=== PATIENT | male | born 1945 | race Caucasian/White ===

== ENCOUNTER 2017-08-12 16:09 | Inpatient (IN) | payer OTHER ==
--- NOTE | 2017-08-12 16:28 | CPEKG ---
Heart Rate: 91 RR Interval: 659 P-R Interval: 144 QRSD Interval: 98 QT Interval: 340 QTC Interval: 419 P Pelkie: 55 QRS Pelkie: 59 T Wave Pelkie: 65 EKG Severity - ABNORMAL ECG - EKG Impression: SINUS RHYTHM EKG Impression: LEFT ATRIAL ABNORMALITY EKG Impression: BORDERLINE INFERIOR Q WAVES Electronically Signed By: Sowmya New 12-Aug-2017 22:55:02
[2017-08-12] MEDS ORDERED: IPRATROPIUM/ALBUTEROL 3 ML DEYVIAL IH ONE (16:31)
[2017-08-12] MEDS ORDERED: methylPREDNISolone SOD SUCC 125 MG/2 ML VIAL IVP ONE (16:31)
--- NOTE | 2017-08-12 16:36 | EDPHY ---
H & P Time Seen by Provider: 08/12/17 16:23 HPI/ROS: CHIEF COMPLAINT: Shortness of breath HISTORY OF PRESENT ILLNESS: Patient is a 71-year-old male with a history of COPD who presents emergency department increasing shortness of breath. Patient is followed by Dr. Mariee from pulmonology. Dr. Mariee is concerned the patient could be developing interstitial lung disease. Over the past month he has been treated with 3 different courses of antibiotics and 2 courses of steroids. He has continued to have increased oxygen requirement. He is now using [address] Mariee saw him in the office today. He felt that his respiratory status was worsening and sent him to the emergency department for admission. Patient states that he has been using his inhalers with no relief. He continues to have a nonproductive cough. He denies any chest pain. No nausea or vomiting. The patient did have a fever 2 days ago to 104. REVIEW OF SYSTEMS: My complete review of systems is negative except as mentioned in the HPI. Past Medical/Surgical History: Includes COPD, possible interstitial lung disease, high cholesterol, hypertension Past surgical history: Bilateral knee replacement Social history: The patient does not smoke. Patient is seen by Dr. Mariee and the [facility]. (of note, the triage note states the patient was seen at the [facility] 2 days ago. The patient has not been seen at the [facility] for some time.) Smoking Status: Former smoker Physical Exam: 37.6, 140/70, 95, 24, 92% on room air GENERAL: Mild respiratory distress, alert. HEENT: Eyes normal to inspection, normal pharynx, no signs of dehydration. NECK: [No thyromegaly, no lymphadenopathy, supple. RESPIRATORY: Coarse breath sounds bilaterally, no rales, rhonchi. Accessory muscle use. Increased work of breathing. CVS: Regular rate and rhythm, no rubs, murmurs, or gallops. ABDOMEN: Soft, nontender, nondistended, no organomegaly. BACK: Normal to inspection, no CVA tenderness. SKIN: Normal color, no rash, warm, dry. No pallor. EXTREMITIES: No pedal edema, no calf tenderness, no Homans sign or cords, no joint swelling. NEURO/PSYCH: Alert and oriented x3, normal mood and affect, normal motor sensory exam. No obvious cranial nerve deficit. Constitutional: Initial Vital Signs Temperature (C) 37.6 C 04/06/18 16:10 Heart Rate 95 08/12/17 16:10 Respiratory Rate 24 H 08/12/17 16:10 Blood Pressure 140/70 H 08/12/17 16:10 O2 Sat (%) 92 08/12/17 16:10 O2 Delivery Mode Nasal Cannula O2 (L/minute) 15 Allergies/Adverse Reactions: No Known Allergies Allergy (Unverified 03/18/11 13:47) Home Medications: Medication Instructions Recorded Atorvastatin Calcium [Lipitor 20 20 mg PO DAILY 03/21/13 mg (RX)] Calcium Carbonate/Vitamin D3 1 tab PO DAILY 03/21/13 [Calcium 500 + D Tablet] Doxylamine Succinate [Sleep Aid] 25 mg PO HS 03/21/13 Multivitamins [Tab-A-Oscar] 1 each PO DAILY 03/21/13 amLODIPine BESYLATE [Norvasc] 10 mg PO DAILY 03/21/13 Albuterol 5 mg/ml INH 06/26/15 Symbacort 06/26/15 Trelegy Ellipta 100-62.5-25 08/12/17 Medical Decision Making - Diagnostics Imaging Results: Imaging Impressions Chest X-Ray 08/12/17 16:31 Impression: 1. Bilateral consolidation/pneumonia left side greater than right. 2. Relative sparing of consolidation involving the upper lobes partially related to underlying blebs, emphysema, and COPD. 3. Blebs are suspected outlined from the dense consolidation left mid lung. There may be some fluid layering in the blebs as well. ED Course/Re-evaluation: In the emergency department I met the patient on arrival. I took report from the patient and his . An IV was placed. Laboratory studies, EKG, chest x- ray were ordered. The patient was given a DuoNeb and Solu-Medrol 125 mg IV. I discussed case with Dr. Mariee. EKG shows normal sinus rhythm, normal rate, normal axis, left bundle branch block. There are no ST or T-wave abnormalities. Patient's white count was minimally elevated at 10. His lactic acid was normal. Chemistry panel is unremarkable. BNP 171. Troponin was negative. Patient's ABG showed a pH of 7.44/32/109 on 15 L of oxygen. Chest x-ray: Please refer the dictated report. This x-ray is abnormal and worsen his previous images studies. Because of this patient was given Levaquin 750 mg IV. I discussed the findings with the patient. I answered all his questions. I discussed case with who will admit the patient for further care and evaluation. Differential Diagnosis: My differential includes but is not limited to COPD exacerbation, interstitial lung disease, pneumonia, bronchitis, influenza, respiratory failure Critical Care Time: The patient required 35 min of critical care time. This was exclusive of any unbundled procedure. This was due the patient's increased oxygen demand, frequent rechecks, time spent at the bedside, consultation with pulmonology and Internal Medicine. - Data Points Laboratory Results: Laboratory Results 08/12/17 16:26 08/12/17 16:26 08/12/17 08/12/17 08/12/17 16:54 16:26 16:26 WBC RBC Hgb Hct MCV MCH MCHC RDW Plt Count MPV Neut % (Auto) Lymph % (Auto) Slope % (Auto) Eos % (Auto) Baso % (Auto) Nucleat RBC Rel Count Absolute Neuts (auto) Absolute Lymphs (auto) Absolute Monos (auto) Absolute Eos (auto) Absolute Basos (auto) Absolute Nucleated RBC Immature Gran % Immature Gran # Puncture Site LEFT RADIAL Patient Temperature 37.0 DEGREES DEGREES pCO2 32 mmHg L mmHg (34-38) pO2 109 mmHg H mmHg (65-75) Total CO2 23 mEq/L mEq/L (23-27) ABG pH 7.44 (7.35-7.45) ABG HCO3 22 mEq/L mEq/L (22-26) ABG O2 Saturation 98 % H % (92-95) ABG Base Excess -1.3 mEq/L mEq/L (-2.5-2.5) VBG Lactic Acid 0.9 mmol/L mmol/L (0.7-2.1) Total O2 Concentration 15.0 LITERS LITERS Sodium 140 mEq/L mEq/L (135-145) Potassium 4.3 mEq/L mEq/L (3.5-5.2) Chloride 105 mEq/L mEq/L (97-110) Carbon Dioxide 26 mEq/l mEq/l (22-31) Anion Gap 9 mEq/L mEq/L (8-16) BUN 22 mg/dL mg/dL (7-23) Creatinine 0.9 mg/dL mg/dL (0.7-1.3) Estimated GFR > 60 Glucose 95 mg/dL mg/dL (70-100) Calcium 9.6 mg/dL mg/dL (8.5-10.4) Troponin I < 0.012 ng/mL ng/mL (0.000-0.034) NT-Pro-B Natriuret Pep 171 pg/mL H pg/mL (0-125) 08/12/17 16:26 WBC 10.91 10^3/uL H 10^3/uL (3.80-9.50) RBC 4.62 10^6/uL 10^6/uL (4.40-6.38) Hgb 13.9 g/dL g/dL (13.7-17.5) Hct 42.3 % % (40.0-51.0) MCV 91.6 fL fL (81.5-99.8) MCH 30.1 pg pg (27.9-34.1) MCHC 32.9 g/dL g/dL (32.4-36.7) RDW 13.5 % % (11.5-15.2) Plt Count 240 10^3/uL 10^3/uL (150-400) MPV 9.5 fL fL (8.7-11.7) Neut % (Auto) 77.0 % H % (39.3-74.2) Lymph % (Auto) 9.8 % L % (15.0-45.0) Slope % (Auto) 9.8 % % (4.5-13.0) Eos % (Auto) 2.5 % % (0.6-7.6) Baso % (Auto) 0.6 % % (0.3-1.7) Nucleat RBC Rel Count 0.0 % % (0.0-0.2) Absolute Neuts (auto) 8.40 10^3/uL H 10^3/uL (1.70-6.50) Absolute Lymphs (auto) 1.07 10^3/uL 10^3/uL (1.00-3.00) Absolute Monos (auto) 1.07 10^3/uL H 10^3/uL (0.30-0.80) Absolute Eos (auto) 0.27 10^3/uL 10^3/uL (0.03-0.40) Absolute Basos (auto) 0.07 10^3/uL 10^3/uL (0.02-0.10) Absolute Nucleated RBC 0.00 10^3/uL 10^3/uL (0-0.01) Immature Gran % 0.3 % % (0.0-1.1) Immature Gran # 0.03 10^3/uL 10^3/uL (0.00-0.10) Puncture Site Patient Temperature pCO2 pO2 Total CO2 ABG pH ABG HCO3 ABG O2 Saturation ABG Base Excess VBG Lactic Acid Total O2 Concentration Sodium Potassium Chloride Carbon Dioxide Anion Gap BUN Creatinine Estimated GFR Glucose Calcium Troponin I NT-Pro-B Natriuret Pep Medications Given: Levofloxacin/Dextrose (Levaquin 750 Mg (Premix)) 150 mls @ 100 mls/hr IV ONCE ONE PRN Reason: Protocol Stop: 08/12/17 18:28 Last Admin: 08/12/17 17:16 Dose: 150 mls Discontinued Medications Albuterol/Ipratropium (Duoneb) 3 ml IH EDNOW ONE Stop: 08/12/17 16:32 Last Admin: 08/12/17 17:02 Dose: 3 ml Methylprednisolone Sodium Succinate (Solu-Medrol) 125 mg IVP EDNOW ONE Stop: 08/12/17 16:32 Last Admin: 08/12/17 17:02 Dose: 125 mg Departure - Departure Disposition: [facility] Inpatient Acute Clinical Impression: Shortness of breath, COPD exacerbation Condition: Fair Referrals: Joel Mariee MD [Primary Care Provider] - As per Instructions
[2017-08-12 16:37] LABS: PLATELET COUNT 240 10^3/uL (150-400)
[2017-08-12] MEDS ORDERED: ONDANSETRON DISINTEGRATING 4 MG TAB PO PRN (17:16)
[2017-08-12] MEDS ORDERED: ONDANSETRON 4 MG/2 ML VIAL IVP PRN (17:16)
[2017-08-12] MEDS ORDERED: ALBUTEROL 3 ML DEYVIAL IH PRN (17:16)
[2017-08-12] MEDS ORDERED: ACETAMINOPHEN 325 MG TAB PO PRN (17:16)
--- NOTE | 2017-08-12 19:49 | GHP ---
[f rep st] HISTORY AND PHYSICAL DATE OF ADMISSION: 08/12/2017 CHIEF COMPLAINT: Shortness of breath and cough. HISTORY OF PRESENT ILLNESS: A 71-year-old male with a history of extensive COPD, which is bullous on imaging, who presents with progressing shortness of breath and cough. Patient has been followed fatemeh y closely by his outpatient director career services, Dr. Mariee. They have completed several courses of antibi otics preceding this, and patient continues to have progressive symptoms. Upon arrival to the ICU, the patient is describing persistent shortness of breath and cough, describi ng some fatigue. Denies any chest pain. Denies palpitations. Denies headache. Denies abdominal di scomfort. He has been tolerating p.o. without complication. Denies changes in his bowel habits, dys uria, hematuria, or lower extremity edema. PAST MEDICAL HISTORY: 1. COPD. 2. Hyperlipidemia. 3. Hypertension. 4. Bilateral knee replacements. 5. Gout. SOCIAL HISTORY: Previous tobacco user. Drinks a beer in the evenings. No illicit drugs or marijuan a. FAMILY HISTORY: Positive for hypertension. REVIEW OF SYSTEMS: A 10-point review of systems is negative with the exception of that reported in t he HPI. PHYSICAL EXAMINATION: VITAL SIGNS: Blood pressure is 148/65, heart rate 101, respiratory rate 20, t emperature 39.2, saturating 93% on a 15 L OxyMask. GENERAL: This is a pleasant-appearing middle-age d male lying flat in bed. HEENT: Notable for moist mucous membranes. Cheeks are erythematous. CAR DIAC: Patient is tachycardic, but regular. PULMONARY: Diffuse crackles bilaterally. GASTROINTESTI NAL: Distended abdomen. Positive bowel sounds. Nontender in all 4 quadrants. MUSCULOSKELETAL: Ne gative for any lower extremity edema. SKIN: Negative for any rashes. NEUROLOGIC: Patient appears alert and oriented x3. PSYCHIATRIC: He is pleasant and cooperative on interview and examination. DATA: White count 10.9, hematocrit 42.3, platelets of 240, creatinine 0.9. Troponin less than 0.012 . Chest x-ray, which I personally reviewed and interpreted, shows bullous emphysema with diffuse cruz ateral fine infiltrates. ASSESSMENT AND PLAN: This is a 71-year-old male with known chronic obstructive pulmonary disease, pr esenting with progressing shortness of breath and cough. 1. Cvcox-nn-wzqqmpo hypoxic respiratory failure. The patient has completed multiple courses of anti biotics. There is some concern the patient now has progressive interstitial lung disease. The patie nt will be admitted, placed on intravenous levofloxacin and high-dose intravenous steroids, per Dr. Sara dc, 125 mg q.6. We will follow his clinical progress. Pulmonary will be seeing the patient in [facility] and can assist with recommendations related to additional diagnostics or therapeutics. 2. Sepsis. Patient is presenting with leukocytosis, tachycardia, and fever. Presumed source would be pulmonary. I have ordered a respiratory panel, polymerase chain reaction. Blood cultures have be en obtained. Patient will receive empiric intravenous levofloxacin. We will continue to follow hilario clemons. 3. Hypertension. The patient's blood pressures will tolerate his home medications, will continue th shaneka. 4. Hyperlipidemia. We will continue his home medications without change. 5. Prophylaxis with Lovenox. 6. Diet: Regular. 7. Disposition: I expect greater than 2 midnights as the patient's pulmonary status is tenuous. He will need additional diagnostics and monitoring before a safe disposition. I have discussed the case with the director career services, Dr. Mariee. Patient will be triaged to the step-do wn unit secondary to his oxygen requirements for ongoing care. /[id number]/MODL
--- NOTE | 2017-08-12 20:14 | PDMN ---
Medical Necessity Medical necessity: C/M review: Patient meets INPT criteria under [facility] Pulmonary disease GRG (Interstitial lung disease), Respiratory failure GRG: Acute on chronic hypoxic respiratory failure, progressing shortness of breath and cough, concern the patient now has progressive interstitial lung disease, sepsis, 93% sat on 15L/min. oxymask, WBC 10.9, bulbous emphysema with diffuse bilateral fine infiltrates on CXR, respiratory rate 24, 39.2 T max requiring planned Pulmonary consult, ongoing IV Levaquin QD, high dose IV Solumdrol 125 mg Q 6 hrs. pulse oximetry, supplemental O2 in SDU, comorbid history of COPD, hyperlipidemia, hypertension, gout, previous tobacco user. MD anticipates > 2 MN LOS for ongoing med nec for eval and TX of above. Patient is Medicare Advantage which follows guidelines [facility] puts forth.
[2017-08-12] MEDS: IPRATROPIUM/ALBUTEROL 3 ML DEYVIAL IH SCH (20:43)
[2017-08-13] MEDS: methylPREDNISolone SOD SUCC 125 MG/2 ML VIAL IVP SCH ×5 (00:20→23:54)
[2017-08-13] MEDS: ATORVASTATIN CALCIUM 20 MG TAB PO SCH ×2 (00:20→20:46)
[2017-08-13] MEDS: GABAPENTIN 300 MG CAP PO SCH ×5 (00:20→23:54)
[2017-08-13] MEDS: IPRATROPIUM/ALBUTEROL 3 ML DEYVIAL IH SCH ×4 (05:57→20:31)
[2017-08-13 06:23] LABS: PLATELET COUNT 232 10^3/uL (150-400)
[2017-08-13] MEDS: MULTIVITAMINS 1 EACH TAB PO SCH (09:55)
[2017-08-13] MEDS: ENOXAPARIN 40 MG/0.4 ML SYR SC SCH (09:55)
[2017-08-13] MEDS: CALCIUM CARB W/VIT D 500 MG TAB PO SCH (09:55)
--- NOTE | 2017-08-13 12:38 | ASMTCMCOM ---
CM Note CM Note Notes: Pt admitted for shortness of breath and cough. Pt sees Dr. Mariee as an outpatient for ongoing issues with COPD and interstitial lung disease. Pt was seen in Dr. Mariee's office yesterday and was sent to the hospital as a direct admit. Pt utilizes high flow oxygen (15L) with activity at his baseline. Per Dr. Robertson, the pt is normally followed by the [facility]. The pt is currently a full code; Dr. Robertson to address code status. Per ICU rounds, a palliative care consult may be appropriate early next week. Dr. Robertson to discuss with Dr. Mariee. The pt lives with his . Discharge needs remain unclear at this time. CM will continue to follow. Current Discharge Plan: To be determined Date Signed: 08/13/2017 12:37 PM Electronically Signed By:Chandni Helm RN
--- NOTE | 2017-08-13 12:46 | GCON ---
[f rep st] CONSULTATION PULMONARY CONSULTATION REASON FOR CONSULTATION: Increased shortness of breath, hypoxemia, pulmonary infiltrates, possible p neumonia. HISTORY: The patient is a very pleasant 71-year-old with a history of severe underlying lung disease . He has known COPD/emphysema secondary to previous smoking. He began smoking in his teens and quit smoking when he was approximately 38 years old. He smoked up to a 2 packs a day for an estimated pa ck year history of approximately 40. He also has a history of interstitial lung disease. He has bee n followed intermittently by Dr. Mariee in the past and was seen again this year. His followup over the last several years has been at the [facility] in [place]. His last CT scan and pulmonary function studies previously were done there. CT scan there in late May showed development of a consolidat shruti process in the anterior left upper lobe and lingula, which was felt possibly to be atelectasis or possibly infectious pneumonitis. Emphysema was again documented. There were bilateral subpleural r eticular nodular interstitial infiltrates at the bases with some mild honeycombing. This was felt to be stable compared to a CT scan done in October 2016. Pulmonary function studies at that time showed a forced vital capacity of 3.97 L, 88% of predicted, with an FEV1 of 2.42 L, 74% of predicted. The ra jaden was 61%. There was a response to bronchodilator by flow rates. Total lung capacity was 98% of p redicted with a thoracic gas volume of 107% of predicted and a residual volume of 124% of predicted. DLCO was significantly reduced at 26% of predicted. His disease is associated with severe hypoxemia. He has been on high-flow oxygen for quite some time , using up to 15 L with 2 portable set-ups with exertional activities. This goes back at least 6 mon ths, and he was on high-flow oxygen even prior to that time. Approximately 3 months ago, he had incr eased dry cough. This was about the time that he was seen in late May at the [facility]. Since then, hi s cough has persisted. He rarely brings up any sputum. Associated with this has been increasing lily rtness of breath and dyspnea on exertion. He has had difficulty coming into the office for appointme nts secondary to extreme dyspnea. Over the last couple days, he has had fevers to as high as 104. H e was seen in the office by Dr. Mariee yesterday. He was profoundly dyspneic and hypoxemic. Saturat ions on double O2 set-up were 90%. He was sent to the hospital for admission with possible pneumonia . Chest x-ray on admission has shown pulmonary infiltrates bilaterally, left significantly greater than right. Pneumonia was felt to be possible. He was started on levofloxacin, placed on DuoNeb, and st arted on Solu-Medrol at 125 mg IV q.6 hours. By his report, he has been on various courses of steroids and antibiotics over the last several month s, since late May. He does not feel that these have resulted in any significant benefit in his c ough, hypoxemia, or dyspnea. He was able to bring up some yellow sputum post admission. He remains on high-flow oxygen, currently on Oxymizer at 10 L; saturations are 95%. There is no history of underlying heart disease. PAST MEDICAL HISTORY: Remarkable for COPD/emphysema and interstitial lung disease as noted above, al adi with an increasingly consolidated process in the left lung since late May. Other medical pro blems include hypertension, hyperlipidemia, bilateral knee replacements, and gout. SOCIAL HISTORY: The patient is . He has not smoked for many years. He does not drink alcoho l significantly; beers in the evenings. 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 There are no recent changes in his home environment and no exposures. O ther individuals have not been ill. FAMILY HISTORY: Noncontributory. History of hypertension. REVIEW OF SYSTEMS: A 10-point review of systems is negative except as mentioned above. PHYSICAL EXAMINATION: GENERAL: A very pleasant, cushingoid-appearing gentleman, who is in no acute distress. Oxymizer nasal cannula is in place. VITAL SIGNS: Blood pressure is 115/94, heart rate 92 with sinus rhythm on the monitor, respiratory rate approximately 20. He is afebrile, with a T-max o f 39.2 after admission. HEENT: Unremarkable for lymphadenopathy or thyromegaly. No obvious jugular venous distention, but the neck is large, and this is difficult to estimate. CHEST: Decreased lynne th sounds bilaterally with some central and expiratory congestion and bibasilar rales. Excursions ar e overall diminished. No pleural rub. No urszula rhonchi. He was able to bring up a small amount of yellow sputum. HEART: Tones are distant. The rhythm is regular. There appears to be a soft systol ic murmur. Gallops cannot be appreciated. P2 appears to be increased. ABDOMEN: Overweight, soft, nontender. Bowel sounds are present. EXTREMITIES: Remarkable for trace plus edema. NEUROLOGIC: W ithin normal limits. DATABASE: CHEST X-RAY: As outlined above. LABORATORY: White blood cell count is 9800, hematocrit 39 (down from approximately 52 on admission), and platelets are normal. There is a shift to the left. Arterial blood gas on admission showed a pH of 7.44, pCO2 34, and pO2 109 on 15 L of oxygen. Blood lactate was 0.9. Basic metabolic panel is w ithin normal limits with the exception of an elevated glucose this morning at 165. Liver function st udies are normal. Troponins are negative. BNP is 171. ASSESSMENT: 1. Pneumonia: Patient presents with fevers and increasing infiltrates on the left, consistent with a community-acquired pneumonia. He has been started on Levaquin and does have significant underlying lung disease, both COPD/emphysema, with a reversible component and interstitial lung disease. He is on bronchodilator therapy and steroids, as well. A sputum culture will be obtained. Levaquin will be continued. A respiratory panel shows no organisms detected, ruling out many viruses, mycoplasma, chlamydia, etc. Urine for Legionella and pneumococcus will be obtained. A sputum culture has been o rdered. 2. Chronic obstructive pulmonary disease/emphysema: He has very significant disease with known bull ous emphysema at the apices. His current pneumonia has resulted in an exacerbation. 3. Interstitial lung disease: The patient has known interstitial lung disease. This is likely cont ributing significantly to his hypoxemia and pulmonary infiltrates. He may have progressive focal pul monary infiltrates on the left in addition to pneumonia, as some consolidative changes were present w hen he was not acutely ill by CT scan in late May at the [facility] by report. PLAN AND RECOMMENDATIONS: The patient will be kept in the intensive care unit. A CT scan (noncontra st) of the chest will be ordered. A procalcitonin will be obtained. Urine antigens for pneumococcus and Legionella will be requested. Sputum culture has been requested. Levaquin, bronchodilator ther apy, and high-dose steroids will be continued for now. He may need insulin coverage if glucoses cont inue to rise. Enoxaparin will be continued for DVT prophylaxis Pepcid will be added for GI prophylax is in light of his high-dose steroid therapy. Inhaled therapies, including his outpatient Trelegy, w ill be continued. DuoNeb will be given scheduled 4 times a day with albuterol in addition by nebuliz er if needed. His routine outpatient medications will be continued. A cardiac echo will be obtained as well. This can be done on Tuesday. Further plans and recommendations will be made based on his progress over the next 12-24 hours. /[id number]/MODL
--- NOTE | 2017-08-13 16:41 | HOSPPROG ---
Hospitalist Progress Note Assessment/Plan: #Acute on chronic hypoxemic resp failure -severe emphysema, COPD, ILD. CT chest with PNA #CAP: LQ, steroids -Legionella, Strep pneumo Ag pending #Fever: CAP. Negative resp panel. Blood cx pending #COPD/emphysema: Nebs, high-dose steroids; monitor sugars #ILD: progressive on CT today #HTN: norvasc #HLD: statin #Gout: no active flar3 #DVT ppx: Lovenox #Disp: cont ICU admission for high-flow oxygen, IV steroids, abx Subjective: breathing less labored today Objective: Vital Signs Temp Pulse Resp BP Pulse Ox 36.8 C 103 H 14 138/49 H 92 08/13/17 16:00 08/13/17 16:00 08/13/17 16:00 08/13/17 16:00 08/13/17 16:00 Laboratory Results 08/13/17 06:15 08/13/17 06:15 08/12/17 08/13/17 08/14/17 05:59 05:59 05:59 Intake Total 700 150 Output Total 400 Balance 300 150 - Physical Exam Constitutional: obese Eyes: PERRL Ears, Nose, Mouth, Throat: moist mucous membranes Cardiovascular: regular rate and rhythym Respiratory: reduced air movement Gastrointestinal: normoactive bowel sounds Genitourinary: no bladder fullness Skin: warm Musculoskeletal: full muscle strength Neurologic: AAOx3, CN II-XII Intact ICD10 Worksheet Patient Problems: Problems Problem Status Onset Osteoarthritis of knee Acute Shortness of breath Acute COPD exacerbation Acute
[2017-08-13] MEDS ORDERED: diphenhydrAMINE 25 MG CAP PO ONE (23:51)
[2017-08-13] MEDS: HYDROCODONE/APAP 5/325 TAB PO PRN (23:56)
[2017-08-14] MEDS: IPRATROPIUM/ALBUTEROL 3 ML DEYVIAL IH SCH (05:30)
[2017-08-14] MEDS: GABAPENTIN 300 MG CAP PO SCH ×4 (05:55→21:32)
[2017-08-14] MEDS: methylPREDNISolone SOD SUCC 125 MG/2 ML VIAL IVP SCH ×4 (05:55→22:32)
[2017-08-14 06:10] LABS: PLATELET COUNT 235 10^3/uL (150-400)
[2017-08-14] MEDS: CALCIUM CARB W/VIT D 500 MG TAB PO SCH (09:03)
[2017-08-14] MEDS: ENOXAPARIN 40 MG/0.4 ML SYR SC SCH (09:04)
[2017-08-14] MEDS: MULTIVITAMINS 1 EACH TAB PO SCH (09:04)
--- NOTE | 2017-08-14 12:00 | PDINTPN ---
Adoption Specialist Progress Note Assessment/Plan: Assessment: Severe bolus emphysema. Quite impressive on CT scan. COPD exacerbation, with cough and purulent sputum. Febrile prior to admission. Respiratory panel negative. Cultures negative to date. Normal procalcitonin argues against significant bacterial infection. On empiric Levaquin. Also getting bronchodilators and high-dose steroids. Will decrease the latter. Possible pneumonia. Chest x-ray shows infiltrates and densities in the left lung, seen on CT scan as well. However, some or all of these densities may be chronic and associated with atelectasis/scarring as they were described in his CT scan at the [facility] in May. Will repeat x-ray, two view tomorrow. Interstitial lung disease. Present in the little remaining lung he has left at the bases, with some honeycombing. Worse compared with his last CT scan at [facility] in 2012. Contributing to his hypoxemia. Hypoxemia. Requires high-flow oxygen with exertional activities, 15 L over the last several months. This appears to be stable at this time. DLCO previously was significantly reduced at about 25% of predicted. Obviously has a large A-a gradient. Relatively normal spirometry, with only mild obstructive disease present. This is somewhat of a surprising finding and probably represents the opposition of obstructive disease/hyperinflation from COPD emphysema and restrictive disease from ILD. Also, clinically, despite his high oxygen requirements, and he seems to do quite well. DVT prophylaxis: Enoxaparin. Plan: Will wean oxygen for a saturation of approximately 90% at rest. Check resting blood gas on this lower oxygen. Continue empiric antibiotics for now. Decrease steroids. Continue bronchodilator treatments. Can transfer to PCU today. Increase activity, ambulate. PT and OT evaluations requested. Repeat x -ray tomorrow: Two-view. Cardiac echo requested for tomorrow as well to evaluate right and left heart function in light of his severe lung disease. 40 min of critical care time spent directly with the patient. Discussed with the patient, nursing, respiratory, and the ICU multi disciplinary team. Subjective: Feels better. Cough is decreased but still intermittent. Not bringing up any more mucus. Denies chest pain. O2 at rest being weaned. Objective: Vital Signs Temp Pulse Resp BP Pulse Ox 36.7 C 89 19 116/54 L 99 08/14/17 10:25 08/14/17 10:25 08/14/17 10:08/14/17 10:25 08/14/17 10:25 Laboratory Results 08/14/17 05:55 08/14/17 05:55 08/13/17 08/14/17 08/15/17 05:59 05:59 05:59 Intake Total 700 650 Output Total 400 Balance 300 650 Laboratory Tests 08/13/17 08/14/17 19:40 05:55 Calcium 9.5 Magnesium 2.5 H Procalcitonin 0.04 Physical Exam - Physical Exam General Appearance: alert, no apparent distress, other (Up in chair) EENT: PERRL/EOMI, other (Nasal cannula in place, oxygen currently at 8 L) Neck: normal inspection (No obvious jugular venous distension, but large neck.) Respiratory: decreased breath sounds (Bilaterally), rales (Fine rales present at both bases), wheezing (Minimal, not tight.), prolonged expiration (Mild), other (Cough is dry, with minimal bronchial congestion.), No rhonchi Cardiac/Chest: regular rate, rhythm (Distant heart tones, soft systolic murmur, no obvious gallop. P2 mildly increased) Abdomen: normal bowel sounds, non-tender, soft (Overweight) Skin: normal color, warm/dry Extremities: pedal edema (Trace +) Neuro/Psych: no motor/sensory deficits, No cognition abnormalities ICD10 Worksheet Patient Problems: Problems Problem Status Onset Osteoarthritis of knee Acute Shortness of breath Acute COPD exacerbation Acute
--- NOTE | 2017-08-14 13:04 | HOSPPROG ---
Hospitalist Progress Note Assessment/Plan: #Acute on chronic hypoxemic resp failure -severe emphysema, COPD, ILD. CT chest with PNA -echo pending #CAP: LQ, steroids -Legionella, Strep pneumo Ag pending #Fever: CAP. Negative resp panel. Blood cx pending #Leukocytosis: steroids #COPD exacerbation: Nebs, high-dose steroids; monitor sugars #ILD: progressive on CT today #HTN: norvasc #HLD: statin #Gout: no active flar3 #DVT ppx: Lovenox #Disp: cont ICU admission for high-flow oxygen, IV steroids, abx Subjective: mildly winded with walking to bathroom Objective: Vital Signs Temp Pulse Resp BP Pulse Ox 36.6 C 94 18 110/80 89 L 08/14/17 12:00 08/14/17 12:00 08/14/17 12:00 08/14/17 12:00 08/14/17 12:00 Laboratory Results 08/14/17 05:55 08/14/17 05:55 08/13/17 08/14/17 08/15/17 05:59 05:59 05:59 Intake Total 700 650 Output Total 400 Balance 300 650 - Physical Exam Eyes: PERRL Ears, Nose, Mouth, Throat: moist mucous membranes Cardiovascular: regular rate and rhythym Respiratory: reduced air movement, other (fine crackles at bases. Mild wheezing. No rhonchi) Genitourinary: no bladder fullness Skin: warm Musculoskeletal: full muscle strength Neurologic: AAOx3, CN II-XII Intact ICD10 Worksheet Patient Problems: Problems Problem Status Onset COPD exacerbation Acute Shortness of breath Acute Osteoarthritis of knee Acute
[2017-08-14] MEDS: ATORVASTATIN CALCIUM 20 MG TAB PO SCH (21:29)
[2017-08-14] MEDS: HYDROCODONE/APAP 5/325 TAB PO PRN (21:29)
[2017-08-14] MEDS: MELATONIN 3 MG TAB PO PRN (22:31)
[2017-08-15] MEDS: GABAPENTIN 300 MG CAP PO SCH ×4 (06:14→23:27)
[2017-08-15] MEDS: methylPREDNISolone SOD SUCC 125 MG/2 ML VIAL IVP SCH ×4 (06:14→23:27)
[2017-08-15] MEDS: HYDROCODONE/APAP 5/325 TAB PO PRN ×2 (06:16→20:39)
[2017-08-15] MEDS: MULTIVITAMINS 1 EACH TAB PO SCH (10:09)
[2017-08-15] MEDS: ENOXAPARIN 40 MG/0.4 ML SYR SC SCH (10:09)
[2017-08-15] MEDS: CALCIUM CARB W/VIT D 500 MG TAB PO SCH (10:09)
--- NOTE | 2017-08-15 12:01 | ECHO ---
[email or web address] [address] [address] Main: [phone] Fax: Transthoracic Echocardiogram Name: BARRON KATHLEEN MR#: [id number] Study Date: 08/15/2017 Study Time: 10:33 AM Date of : 1945 Age: 71 year(s) Height: 177.8 cm (70 in.) Weight: 98.88 kg (218 lb.) BSA: 2.17 m2 Gender: Male Examination: Echo Indication: Image Quality: Adequate Contrast: Requested by: Husam Robertson BP: 118 mmHg/62 mmHg Heart Rate: Rhythm: Indication: Procedure Staff Chief Security Officer: Ayala Menjivar [facility] Reading Physician: Horacio Evans MD Requesting Provider: Conclusions: Normal size left ventricle. Normal global systolic LV function. The ejection fraction is estimated to be 50-55 %. No regional wall motion abnormality. Grade 1 diastolic dysfunction (abnormal relaxation). The left atrium is mildly dilated. Mild to moderate mitral regurgitation. Aortic sclerosis is present. Trivial aortic valve regurgitation. Mild tricuspid regurgitation is present. The pulmonary artery pressure is normal. Measurements: Chambers Valvular Assessment AV/MV Valvular Assessment TV/PV Normal Normal Normal Name Value Range Name Value Range Name Value Range Ao Gisselle (2D): 3.0 cm (1.4 cm-2.6 AV Vmax: 1.64 m/s (1 m/s-1.7 TR Vmax: 2.61 mm/s ( - ) cm) m/s) TR PGmax: 27 mmHg ( - ) IVSd (2D): 1.0 cm (0.6 cm-1.1 AV maxP mmHg ( - ) syst. PAP: 32 mmHg ( - ) cm) AV meanP mmHg ( - ) PV Vmax: 1.02 m/s (0.6 m/s-0.9 LVDd (2D): 5.1 cm (4.2 cm-5.9 LVOT Vmax: 1.27 m/s (0.7 m/s-1.1 m/s) cm) m/s) PV PGmax: 4 mmHg ( - ) LVDs (2D): 3.2 cm (2.1 cm-4 MINGO (Vmax): 2.4 cm2 ( - ) cm) MINGO (VTI): 2.4 cm ( - ) LVPWd (2D): 1.1 cm (0.6 cm-1 MV E Vmax: 0.87 m/s ( - ) cm) MV A Vmax: 1.06 m/s ( - ) LVOTd 2.0 cm 2.0 cm mm MV E/A: 0.82 ( - ) LVEF (BP): 55 % (>=55 %) MV PHT: 0.063 s ( - ) EF Range: 50-55 % MVA (PHT): 3.5 s ( - ) RVDd(2D): 2.6 cm (1.9 cm-3.8 cmmm) Patient: BARRON KATHLEEN Study Date: 08/15/2017 Page 1 of 2 10:33 AM Continued Measurements: Chambers Valvular Assessment AV/MV Valvular Assessment TV/PV Name Value Name Value Name Value LADs: 4.2 cm MV DecTime: 222 m/s CVP (est.): 5 mmHg LADs Lon.0 cm MV E/E' Septal: 12.00 LA Area: 24.0 cm2 MV E/E' Lateral: 12.50 LA Volume: 81 ml LA Volume Index: 37.3 ml/m2 RA Area: 18.0 cm2 Additional Vessels Name Value Ao Ascendin.2 cm Inferior Vena Cava: 1.9 cm Findings: Left Ventricle: Normal size left ventricle. No LV hypertrophy. Normal global systolic LV function. The ejection fraction is estimated to be 50-55 %. No regional wall motion abnormality. Grade 1 diastolic dysfunction (abnormal relaxation). Right Ventricle: Normal size right ventricle. Normal RV function. Left Atrium: The left atrium is mildly dilated. Right Atrium: The right atrium is normal in size. Mitral Valve: The mitral valve is normal in appearance and function. Mild to moderate mitral regurgitation. No mitral stenosis is present. Aortic Valve: The aortic valve is normal in appearance and function. Aortic sclerosis is present. Trivial aortic valve regurgitation. No aortic valve stenosis is present. Tricuspid Valve: The tricuspid valve is normal in appearance and function. Mild tricuspid regurgitation is present. The pulmonary artery pressure is normal. Right ventricular systolic pressure measures 32mmHg. Pulmonic Valve: The pulmonic valve is normal in appearance and function. There is no pulmonic regurgitation seen. Aorta: The aorta is normal. Normal size aortic root measuring 3.0 cm. Normal size ascending aorta measuring 3.2 cm. IVC: The IVC is normal sized. Pericardium: No pericardial effusion. No pleural effusion. (No Signature Object) Patient: BARRON KATHLEEN Study Date: 08/15/2017 Page 2 of 2 10:33 AM [id number]
--- NOTE | 2017-08-15 12:44 | HOSPPROG ---
Hospitalist Progress Note Assessment/Plan: 71 yo M with hx of COPD and ILD presenting with acute on chronic hypoxic respiratory failure #Acute on chronic hypoxemic resp failure: in the setting of baseline severe bullous emphysema, ILD and superimposed LLL pna noted on personal review of chest CT. At baseline utilizes 15L of o2 with rest and 25 with exertion, currently better than baseline. Remains on IV steroids per pulmonary currently, appreciate their assistance. #CAP: LLL as per above and being treated with levaquin. Resp panel negative, legionella and strep ag pending. Blood cultures from 08/12 negative. #Leukocytosis: steroids #COPD exacerbation: Nebs, high-dose steroids; monitor sugars #ILD: progressive on CT, pulmonary following, IV steroids for now #HTN: norvasc #HLD: statin #Gout: no active flare #DVT ppx: Lovenox #Disp:IP status, will likely be ready to discharge in coming 1-2 days pending transition from IV steroids Patient new to my care. Old records reviewed and summarized as above. Care plan reviewed with patients present at bedside. Subjective: no significant overnight events, patient is feeling much better than he was prior to coming in Objective: Vital Signs Temp Pulse Resp BP Pulse Ox 36.8 C 75 16 135/89 H 95 08/15/17 11:01 08/15/17 11:01 08/15/17 11:01 08/15/17 11:01 08/15/17 11:01 Laboratory Results 08/14/17 05:55 08/14/17 05:55 08/14/17 08/15/17 08/16/17 05:59 05:59 05:59 Intake Total 650 1050 480 Output Total 400 Balance 650 650 480 awake alert nad anicteric op clear rrr no mrg soft nt nd no cce warm dry well perfused oriented appropriate - Time Spent With Patient Time Spent with Patient: greater than 35 minutes Time Spent with Patient: Greater than 35 minutes spent on this patients care, greater than 50% of time spent counseling, educating, and coordinating care regarding the above mentioned plan. ICD10 Worksheet Patient Problems: Problems Problem Status Onset Osteoarthritis of knee Acute Shortness of breath Acute COPD exacerbation Acute
--- NOTE | 2017-08-15 12:44 | PDINTPN ---
Electric Power Machine Operator Progress Note Assessment/Plan: Assessment/plan: * Severe bolus emphysema. Quite impressive on CT scan. * COPD exacerbation, with cough and purulent sputum. Febrile prior to admission. Respiratory panel negative. Cultures negative to date. Normal procalcitonin argues against significant bacterial infection. On empiric Levaquin. Also getting bronchodilators and high-dose steroids. -likely home on high-dose steroids * Possible pneumonia. Chest x-ray shows infiltrates and densities in the left lung, seen on CT scan as well. However, some or all of these densities may be chronic and associated with atelectasis/scarring as they were described in his CT scan at the [facility] in May. Will repeat x-ray, two view tomorrow. * Interstitial lung disease. Present in the little remaining lung he has left at the bases, with some honeycombing. Worse compared with his last CT scan at [facility] in 2012. Contributing to his hypoxemia. * Acute respiratory failure with significant hypoxemia. Requires high-flow oxygen with exertional activities, 15 L over the last several months. This appears to be stable at this time. DLCO previously was significantly reduced at about 25% of predicted. Improved * Relatively normal spirometry, with only mild obstructive disease present. This is somewhat of a surprising finding and probably represents the opposition of obstructive disease/hyperinflation from COPD emphysema and restrictive disease from ILD. Also, clinically, despite his high oxygen requirements, and he seems to do quite well. * DVT prophylaxis: Enoxaparin. * Disposition-if he continues to improve likely discharge home tomorrow Subjective: Up walking with physical therapy. Currently on 15 L with exercise which is what he uses at home. Overall he feels markedly improved. Objective: Vital Signs Temp Pulse Resp BP Pulse Ox 36.8 C 75 16 135/89 H 95 08/15/17 11:01 08/15/17 11:01 08/15/17 11:01 08/15/17 11:01 08/15/17 11:01 Laboratory Results 08/14/17 05:55 08/14/17 05:55 08/14/17 08/15/17 08/16/17 05:59 05:59 05:59 Intake Total 650 1050 480 Output Total 400 Balance 650 650 480 Echocardiogram reveals normal ejection fraction and no evidence of pulmonary hypertension Laboratory Results 08/14/17 05:55 08/14/17 05:55 08/14/17 15:09 Patient Temperature 37.0 DEGREES DEGREES pCO2 30 mmHg L mmHg (34 - 38) pO2 93 mmHg H mmHg (65 - 75) Total CO2 23 mEq/L mEq/L (23 - 27) ABG pH 7.48 H (7.35 - 7.45) ABG HCO3 22 mEq/L mEq/L (22 - 26) ABG O2 Saturation 97 % H % (92 - 95) ABG Base Excess 0.1 mEq/L mEq/L (-2.5 - 2.5) Total O2 Concentration 10.0 LITERS LITERS 08/12/17 17:11 Blood Culture - Preliminary Blood 08/12/17 16:26 Blood Culture - Preliminary Blood - Time Spent With Patient Time Spent With Patient: 25 min of time spent with patient, over 1/2 involved with coordination of care or counseling Physical Exam - Physical Exam General Appearance: alert, no apparent distress EENT: PERRL/EOMI, normal ENT inspection Neck: non-tender, full range of motion, supple, normal inspection Respiratory: crackles, wheezing (Slight), No respiratory distress Cardiac/Chest: normal peripheral pulses, regular rate, rhythm Peripheral Pulses: 2+: carotid (R), carotid (L), femoral (R), femoral (L), dorsalis-pedis (R), dorsalis-pedis (L) Abdomen: normal bowel sounds, non-tender, soft Male Genitalia: deferred Rectal: deferred Skin: normal color, warm/dry Extremities: normal range of motion, non-tender, normal inspection, normal capillary refill Neuro/Psych: no motor/sensory deficits, alert, normal mood/affect, oriented x 3 ICD10 Worksheet Patient Problems: Problems Problem Status Onset COPD exacerbation Acute Shortness of breath Acute Osteoarthritis of knee Acute
--- NOTE | 2017-08-15 15:17 | ASMTCAGE ---
CAGE Do you feel you ought to Answers: No cut down on your drinking or drug use? Do people annoy you by Answers: No criticizing your drinking or drug use? Do you feel guilty about Answers: No your drinking or drug use? Do you drink or use drugs Answers: No first thing in the morning ([employer])? Additional Comments no alcohol in the mornings but takes a vicodin immediately upon rising. Drinks no more than 2 beers/day and denies binge drinking. Date Signed: 08/15/2017 03:17 PM Electronically Signed By:Shea Marin RN
--- NOTE | 2017-08-15 15:24 | ASMTCMCOM ---
CM Note CM Note Notes: 08/15/2017 Case Management Note Met w/pt to complete the CAGE. Pt lives with his Alda [phone] independently. He has a stepson and his son's Domonique are involved in his cares. Pt has recently enrolled in the [facility]. He is followed by a artistic associate Dr. Mariee and by [facility]. His home O2 company is [employer]. There is a palliative care meeting planned for 10 am tomorrow with Juanito Villalba. Case Management d/c poc: Anticipating independent with follow up as directed. Case Management available if needs change. Date Signed: 08/15/2017 03:23 PM Electronically Signed By:Shea Marin RN
[2017-08-15] MEDS: ATORVASTATIN CALCIUM 20 MG TAB PO SCH (20:39)
[2017-08-15] MEDS: MELATONIN 3 MG TAB PO PRN ×2 (20:39→23:31)
[2017-08-16] MEDS: GABAPENTIN 300 MG CAP PO SCH ×2 (05:33→12:23)
[2017-08-16] MEDS: methylPREDNISolone SOD SUCC 125 MG/2 ML VIAL IVP SCH ×2 (05:33→12:23)
[2017-08-16] MEDS: CALCIUM CARB W/VIT D 500 MG TAB PO SCH (08:03)
[2017-08-16] MEDS: MULTIVITAMINS 1 EACH TAB PO SCH (08:04)
[2017-08-16] MEDS: ENOXAPARIN 40 MG/0.4 ML SYR SC SCH (08:04)
--- NOTE | 2017-08-16 10:43 | ASMTCMCOM ---
CM Note CM Note Notes: 08/16/2017 Case Management Note Attended palliative meeting this morning with pt, his , sister and brother in law and Juanito Villalba [facility] palliative tongue and groove machine setter. Please see Palliative note for details. Faxed referral to [facility] at family request. There are no further case management d/c needs identified. Case Management d/c poc: home independent with meeting planned for outpatient [facility]. Case Management available if needs change. Date Signed: 08/16/2017 10:43 AM Electronically Signed By:Shea Marin RN
--- NOTE | 2017-08-16 10:56 | SOAPPROG ---
SOAP Progress Note Assessment/Plan: Assessment/plan: * Severe bolus emphysema. Quite impressive on CT scan. * COPD exacerbation, with cough and purulent sputum. Febrile prior to admission. Respiratory panel negative. Cultures negative to date. Normal procalcitonin argues against significant bacterial infection. On empiric Levaquin. Also getting bronchodilators and high-dose steroids. -likely home on high-dose steroids * Possible pneumonia. Chest x-ray shows infiltrates and densities in the left lung, seen on CT scan as well. However, some or all of these densities may be chronic and associated with atelectasis/scarring as they were described in [place] CT scan [facility] [place]. * Interstitial lung disease. Present in the little remaining lung he has left at the bases, with some honeycombing. Worse compared with his last CT scan at [facility] in 2012. Contributing to his hypoxemia. * Acute respiratory failure with significant hypoxemia. Requires high-flow oxygen with exertional activities, 15 L over the last several months. This appears to be stable at this time. DLCO previously was significantly reduced at about 25% of predicted. Improved * Relatively normal spirometry, with only mild obstructive disease present. This is somewhat of a surprising finding and probably represents the opposition of obstructive disease/hyperinflation from COPD emphysema and restrictive disease from ILD. Also, clinically, despite his high oxygen requirements, and he seems to do quite well. * DVT prophylaxis: Enoxaparin. * Disposition-home today Subjective: Looks and feels markedly improved. Wishes to go home. Objective: Vital Signs Temp Pulse Resp BP Pulse Ox 36.6 C 88 17 131/77 H 95 08/16/17 07:52 08/16/17 09:28 08/16/17 09:28 08/16/17 07:52 08/16/17 09:28 Laboratory Results 08/14/17 05:55 08/14/17 05:55 08/15/17 08/16/17 08/17/17 05:59 05:59 05:59 Intake Total 1050 1410 Output Total 400 Balance 650 1410 - Time Spent With Patient Time Spent With Patient: 25 min of time spent with patient, over 1/2 involved with coordination of care or counseling. Case discussed with nursing, hospitalist, and family. Physical Exam - Physical Exam General Appearance: WD/WN, alert, no apparent distress EENT: PERRL/EOMI Neck: non-tender, full range of motion, supple, normal inspection Respiratory: crackles (Few basilar), No respiratory distress Cardiac/Chest: normal peripheral pulses, regular rate, rhythm, systolic murmur Abdomen: normal bowel sounds, non-tender, soft Male Genitalia: deferred Rectal: deferred Skin: normal color, warm/dry Extremities: normal range of motion, non-tender, normal inspection, normal capillary refill Neuro/Psych: no motor/sensory deficits, alert, normal mood/affect, oriented x 3 ICD10 Worksheet Patient Problems: Problems Problem Status Onset COPD exacerbation Acute Shortness of breath Acute Osteoarthritis of knee Acute
[2017-08-16 11:10] VITALS: BP 135/71
--- NOTE | 2017-08-16 12:14 | PDDCSUM ---
Discharge Summary Discharge Summary: Dates of service 08/12-08/16/17 Consultations: pulmonary Procedures: chest CT, echocardiogram Hospital course by problem: 71 yo M with hx of COPD and ILD presenting with acute on chronic hypoxic respiratory failure #Acute on chronic hypoxemic resp failure: in the setting of baseline severe bullous emphysema, ILD and superimposed LLL pna noted on personal review of chest CT. At baseline utilizes 15L of o2 with rest and 25 with exertion, currently better than baseline. Treated with IV steroids in house with plan to dc on prednisone taper from 60mg. #CAP: LLL as per above and being treated with levaquin. Resp panel negative, legionella and strep ag pending. Blood cultures from 08/12 negative. #Leukocytosis: driven by steroids #COPD exacerbation: Nebs, high-dose steroids; monitor sugars #ILD: progressive on CT, pulmonary following, IV steroids for now #HTN: norvasc #HLD: statin #Gout: no active flare #DVT ppx: Lovenox DC home with home health F/U with Dr. Mariee in coming weeks > 35 min spent in dc, more than half in coordination of care
--- NOTE | 2017-08-16 12:15 | PDIAF ---
- Diagnosis Code Status: Full Code - Medication Management Discharge Medications: Medications to Continue on Transfer Atorvastatin Calcium [Lipitor 20 mg (*)] 20 mg PO HS 03/21/13 [Last Taken ] Calcium Carbonate/Vitamin D3 [Calcium 500-Vit D3 400 Tablet] 1 tab PO DAILY [Last Taken 08/12/17] Multivitamins [Multivitamin (*)] 1 each PO DAILY 03/21/13 [Last Taken 08/12/17] amLODIPine BESYLATE [Norvasc 10 mg (*)] 10 mg PO HS 03/21/13 [Last Taken ] Gabapentin [Neurontin 300 MG (*)] 300 mg PO Q6H 08/12/17 [Last Taken Unknown] Hydrocodone/Acetaminophen [[place] 5/325 (*)] 1 - 2 tab PO Q6H PRN 08/12/17 [Last Taken 08/12/17 11:00] Trelegy Ellipta 100-62.5-25 1 inh IH DAILY 08/12/17 [Last Taken 08/12/17] Acetaminophen [Tylenol 325mg (*)] 650 mg PO Q4HRS PRN tab 08/16/17 [Last Taken Unknown] Melatonin [Melatonin 3 MG (*)] 3 mg PO HS PRN tab 08/16/17 [Last Taken Unknown] levOFLOXACIN [levAQUIN (*)] 750 mg PO DAILY10 #2 tab 08/16/17 [Last Taken Unknown] predniSONE 40 mg PO DAILY #42 tablet 08/16/17 [Last Taken Unknown] Discharge Medications: Refer to the Discharge Home Medication list for PRN reason. - Orders Services needed: Home Care, Registered Nurse, Certified Violin Maker Hand Home Care Face to Face: I certify that this patient was under my care and that I had the required [id number] encounter meeting the encounter requirements on the discharge day. My findings support the fact that the patient is homebound as defined in Home Care Face to Face Continued: CMS Chapter 7 Medicare Benefits Manual 30.1.1 , The condition of the patient is such that there exists a normal inability to leave home and consequently, leaving home would require a considerable and taxing effort. Isolation Type: None - Follow Up Care Current Providers and Referrals: Jole Mariee MD [Primary Care Provider] - As per Instructions
[2017-08-16] MEDS: HYDROCODONE/APAP 5/325 TAB PO PRN (12:29)
--- NOTE | 2017-08-16 12:46 | ASDISCHSUM ---
Discharge Information Plan Status:Outpatient Palliative Care Medically Cleared to Leave:08/16/2017 Discharge Date:08/16/2017 CM D/C Disposition:Home, Routine, Self-Care ADT D/C Disposition:Home Health Service Projected Discharge Date:08/16/2017 11:00 AM Transportation at D/C:Family Discharge Delay Reason: Follow-Up Date:08/16/2017 11:00 AM Discharge Slot: Final Diagnosis: Placement Information Referral Type:Palliative Care Referral ID:[id number] Provider Name:[facility] Address 1:[address] Phone Number: Address 2: Fax Number: City:[place] Selection Factors: State:[place] Patient Contact Information Contact Name:LUCIEN Relationship: [facility] Work Phone: City:[place] Phone: State/Zip Code:[place] [address] Email: Financial Information Financial Class:Medicare Advantage Plans Primary Plan Desc:[employer] GOLD MEDICARE Primary Plan Number:[id number] Secondary Plan Desc: Secondary Plan Number: Assessment Information [facility] CM Progress Note CM Note CM Note Notes: Pt admitted for shortness of breath and cough. Pt sees Dr. Mariee as an outpatient for ongoing issues with COPD and interstitial lung disease. Pt was seen in Dr. Mariee's office yesterday and was sent to the hospital as a direct admit. Pt utilizes high flow oxygen (15L) with activity at his baseline. Per Dr. Robertson, the [place] is normally followed by the [place]. The pt is currently a full code; Dr. Robertson to address code status. Per ICU rounds, a palliative care consult may be appropriate early next week. Dr. Robertson to discuss with Dr. Mariee. The pt lives with his . Discharge needs remain unclear at this time. CM will continue to follow. Current Discharge Plan: To be determined Date Signed: 08/13/2017 12:37 PM Electronically Signed By:Chandni Helm RN LACE LACE Length of stay for Answers: 3 days current admission Comorbidities - select Answers: Chronic pulmonary disease all that apply Other Notes: possible interstitial lung disease, high cholesterol, HTN, gout # of Emergency department Answers: 1-2 visits in the last 6 months Score: 7 Date Signed: 08/16/2017 12:41 PM Electronically Signed By:Shea Marin RN CAGE Questionnaire CAGE Do you feel you ought to Answers: No cut down on your drinking or drug use? Do people annoy you by Answers: No criticizing your drinking or drug use? Do you feel guilty about Answers: No your drinking or drug use? Do you drink or use drugs Answers: No first thing in the morning (Eye [employer])? Additional Comments no alcohol in the mornings but takes a vicodin immediately upon rising. Drinks no more than 2 beers/day and denies binge drinking. Date Signed: 08/15/2017 03:17 PM Electronically Signed By:Shea Marin RN [facility] DOMI Progress Note CM Note CM Note Notes: 08/15/2017 Case Management Note Met w/pt to complete the CAGE. Pt lives with his Alda [phone] independently. He has a stepson and his son's Domonique are involved in his cares. Pt has recently enrolled in the [facility] Community Program. He is followed by a chief cardiopulmonary technologist Dr. Mariee and by [facility] for Cardiology. His home O2 company is [employer]. There is a palliative care meeting planned for 10 am tomorrow with Juanito Villalba. Case Management d/c poc: Anticipating independent with follow up as directed. Case Management available if needs change. Date Signed: 08/15/2017 03:23 PM Electronically Signed By:Shea Marin RN [facility] CM Progress Note CM Note CM Note Notes: 08/16/2017 Case Management Note Attended palliative meeting this morning with pt, his , sister and brother in law and Juanito Villalba, [facility] palliative cash application representative. Please see Palliative note for details. Faxed referral to [facility] at family request. There are no further case management d/c needs identified. Case Management d/c poc: home independent with meeting planned for outpatient [facility]. Case Management available if needs change. Date Signed: 08/16/2017 10:43 AM Electronically Signed By:Shea Marin RN Intervention Information Intervention Type:*IM-Signed Date of Service:08/16/2017 12:40 PM Patient Type:Inpatient Staff Member:GORDON Marin Hillary Hours: Discipline: Severity: Comment:
== END 2017-08-16 13:25 | disposition home health service (06) | DRG 189 ==
LOC: F2N 18:09 → F2W 08-14 13:15
PROVIDERS: ADMIT Hospitalist; ATTEND Hospitalist
DX: J96.21 Acute and chronic respiratory failure with hypoxia (principal); J44.1 Chronic obstructive pulmonary disease with (acute) exacerbation; J18.9 Pneumonia, unspecified organism; J84.9 Interstitial pulmonary disease, unspecified; M10.9 Gout, unspecified; E78.00 Pure hypercholesterolemia, unspecified; I10 Essential (primary) hypertension; Z87.891 Personal history of nicotine dependence; Z96.653 Presence of artificial knee joint, bilateral
CPT/HCPCS: 87449-90; 96374; 97161-GP; 97165-GO; 97535-GO; G8987-GO-CI; G8988-GO-CI; G8989-GO-CI; J1650; J1956; J2930; J7613

== ENCOUNTER 2017-09-10 12:40 | Inpatient (IN) | payer OTHER ==
[2017-09-10] MEDS ORDERED: IPRATROPIUM/ALBUTEROL 3 ML DEYVIAL IH ONE (13:10)
[2017-09-10] MEDS ORDERED: methylPREDNISolone SOD SUCC 125 MG/2 ML VIAL IVP ONE (13:10)
--- NOTE | 2017-09-10 13:13 | EDPHY ---
H & P Stated Complaint: SOB, Cough, fever x 4 days Time Seen by Provider: 09/10/17 12:59 HPI/ROS: CHIEF COMPLAINT: Shortness of breath HISTORY OF PRESENT ILLNESS: The patient is a 71-year-old man with a history of severe COPD on 15 L oxygen with a Oxymizer at home. Also history of interstitial lung disease and was hospitalized last month for community- acquired pneumonia treated successfully with Levaquin. He was discharged on a steroid taper which states he finished about 2-3 days ago. This is when he began developing worsening short of breath again. No fever. He states that his cough has been productive of white sputum. He also has a history of DVT several years ago but is not currently anticoagulated. He denies chest pain. He denies cardiac history. REVIEW OF SYSTEMS: Constitutional: denies: chills, fever, recent illness, recent injury EENTM: denies: blurred vision, double vision, nose congestion Respiratory: denies: cough, shortness of breath Cardiac: denies: chest pain, irregular heart rate, lightheadedness, palpitations Gastrointestinal/Abdominal: denies: abdominal pain, diarrhea, nausea, vomiting, blood streaked stools Genitourinary: denies: dysuria, frequency, hematuria, pain Musculoskeletal: denies: joint pain, muscle pain Skin: denies: lesions, rash, jaundice, bruising Neurological: denies: headache, numbness, paresthesia, tingling, dizziness, weakness Hematologic/Lymphatic: denies: blood clots, easy bleeding, easy bruising Immunologic/allergic: denies: HIV/AIDS, transplant EXAM: GENERAL: Well-appearing, well-nourished and in no acute distress. 75% on 15 L. HEAD: Atraumatic, normocephalic. EYES: Pupils equal round and reactive to light, extraocular movements intact, sclera anicteric, conjunctiva are normal. ENT: TMs normal, nares patent, oropharynx clear without exudates. Moist mucous membranes. NECK: Normal range of motion, supple without lymphadenopathy or JVD. LUNGS: Breath sounds clear to auscultation bilaterally and equal. No obvious wheezes rales or rhonchi. HEART: Regular rate and rhythm without murmurs, rubs or gallops. ABDOMEN: Soft, nontender, normoactive bowel sounds. No guarding, no rebound. No masses appreciated. BACK: No CVA tenderness, no spinal tenderness, step-offs or deformities EXTREMITIES: Normal range of motion, no pitting or edema. No clubbing or cyanosis. NEUROLOGICAL: Cranial nerves II through XII grossly intact. Normal speech, normal gait. 5/5 strength, normal movement in all extremities, normal sensation PSYCH: Normal mood, normal affect. SKIN: Warm, dry, normal turgor, no visible rashes or lesions. Source: Patient Exam Limitations: No limitations - Personal History Tetanus Vaccine Date: < 10 yrs - Medical/Surgical History Hx Asthma: No Hx Chronic Respiratory Disease: Yes Hx Diabetes: No Hx Cardiac Disease: No Hx Renal Disease: No Hx Cirrhosis: No Hx Alcoholism: No Hx HIV/AIDS: No Hx Splenectomy or Spleen Trauma: No Other PMH: COPD, interstitial lung disease, empasemea, high cholesterol - Family History Significant Family History: No pertinent family hx - Social History Smoking Status: Former smoker Alcohol Use: Sober Drug Use: None Constitutional: Initial Vital Signs Temperature (C) 37.6 C 09/10/17 12:45 Heart Rate 88 09/10/17 12:45 Respiratory Rate 24 H 09/10/17 12:45 Blood Pressure 109/60 09/10/17 12:45 O2 Sat (%) 92 09/10/17 12:45 O2 Delivery Mode Oxymask O2 (L/minute) 15 Allergies/Adverse Reactions: No Known Allergies Allergy (Unverified 03/18/11 13:47) Home Medications: Medication Instructions Recorded Atorvastatin Calcium [Lipitor 20 20 mg PO HS 03/21/13 mg (*)] Calcium Carbonate/Vitamin D3 1 tab PO BID 03/21/13 [Calcium 500-Vit D3 400 Tablet] Multivitamins [Multivitamin (*)] 1 each PO DAILY 03/21/13 amLODIPine BESYLATE [Norvasc 10 mg 10 mg PO HS 03/21/13 (*)] Gabapentin [Neurontin 300 MG (*)] 300 mg PO Q6HRS 08/12/17 Hydrocodone/Acetaminophen [[place] 1 tab PO Q6HRS PRN 08/12/17 5/325 (*)] Acetaminophen [Tylenol ES 500 mg 500 mg PO Q4 PRN 09/10/17 (*)] Albuterol [Proventil Inhaler HFA 2 puffs IH Q4HRS PRN 09/10/17 (*)] Chlorpheniramine/Dextromethorp 10 ml PO BID 09/10/17 [ROBITUSSIN LONG-ACTING LIQ] Fluticasone/Umeclidin/Vilanter 1 each IH DAILY 09/10/17 [Trelegy Ellipta 100-62.5-25] Herbals/Supplements -Info Only 1 ea PO DAILY 09/10/17 Melatonin [Melatonin 5 mg] 5 mg PO HS 09/10/17 Vit C/Dl-E AC/Lut/Copper/Znox 1 each PO BID 09/10/17 [Preservision Softgel] Medical Decision Making - Diagnostics EKG Interpretation: An EKG obtained and was read and documented in trace view. Please see trace view for full reading and report. Sinus rhythm, no acute ischemic changes Imaging Results: Imaging Impressions Chest X-Ray 09/10/17 12:59 Impression: New left upper lobe consolidation consistent with atelectasis and/ or pneumonia. The left upper lobe cavities are smaller than August 12. Chest/Thorax CTA 09/10/17 15:24 Impression: 1. No evidence of pulmonary thromboembolic disease; however, the subsegmental distribution of bilateral lower lobes is suboptimally evaluated due to respiratory motion artifact. 2. Left upper lobe pneumonia versus aspiration. 3. Severe emphysema and moderate interstitial lung disease, unchanged. 4. New trace left pleural effusion. Findings discussed with Emergency Department physician, Gopi Palomino M.D., on September 10, 2017 at 1715. Imaging: Discussed imaging studies w/ fabric lay out worker Radiologist ED Course/Re-evaluation: The patient has a new left upper lobe pneumonia. I will start antibiotics. He is septic but not severe sepsis. He has received fluids. Discussed with Dr. Klein who will admit. We agreed to perform CT scan as well because he does not have a fever or white count. The patient now tells me that he did have a fever last night and was diaphoretic. He took Tylenol before coming here. I will order cefepime for possible hospital-associated pneumonia. Differential Diagnosis: Partial list of the Differential diagnosis considered include but were not limited to; pneumonia, COPD exacerbation and although unlikely based on the history and physical exam, I also considered PE, acute coronary disease, CHF. Critical Care Time: Critical care time spent by me, Dr. Rozeski exclusive with this patient was 45 minutes, exclusive of the PA time exclusive of procedures. The organ system that was at risk was pulmonary and I gave medications, diagnosis, consultation and admission to prevent worsening of the patient's condition - Data Points Laboratory Results: Laboratory Results 09/10/17 13:01 09/10/17 13:01 09/10/17 09/10/17 09/10/17 13:01 13:01 13:01 WBC RBC Hgb Hct MCV MCH MCHC RDW Plt Count MPV Neut % (Auto) Lymph % (Auto) [place] % (Auto) Eos % (Auto) Baso % (Auto) Nucleat RBC Rel Count Absolute Neuts (auto) Absolute Lymphs (auto) Absolute Monos (auto) Absolute Eos (auto) Absolute Basos (auto) Absolute Nucleated RBC Immature Gran % Immature Gran # PT 14.1 SEC SEC (12.0-15.0) INR 1.07 (0.83-1.16) APTT 29.8 SEC SEC (23.0-38.0) D-Dimer 1.95 ug/mLFEU H ug/mLFEU (0.00-0.50) VBG Lactic Acid Sodium 141 mEq/L mEq/L (135-145) Potassium 4.2 mEq/L mEq/L (3.5-5.2) Chloride 106 mEq/L mEq/L (97-110) Carbon Dioxide 26 mEq/l mEq/l (22-31) Anion Gap 9 mEq/L mEq/L (8-16) BUN 19 mg/dL mg/dL (7-23) Creatinine 1.0 mg/dL mg/dL (0.7-1.3) Estimated GFR > 60 Glucose 99 mg/dL mg/dL (70-100) Calcium 9.1 mg/dL mg/dL (8.5-10.4) Total Bilirubin 1.6 mg/dL H mg/dL (0.1-1.4) Conjugated Bilirubin 0.3 mg/dL mg/dL (0.0-0.5) Unconjugated Bilirubin 1.3 mg/dL H mg/dL (0.0-1.1) AST 26 IU/L IU/L (17-59) ALT 37 IU/L IU/L (21-72) Alkaline Phosphatase 105 IU/L IU/L (38-126) Troponin I < 0.012 ng/mL ng/mL (0.000-0.034) Total Protein 6.4 g/dL g/dL (6.3-8.2) Albumin 3.6 g/dL g/dL (3.5-5.0) Procalcitonin 0.08 ng/mL ng/mL (0.02-0.10) 09/10/17 09/10/17 13:01 13:01 WBC 7.73 10^3/uL 10^3/uL (3.80-9.50) RBC 4.16 10^6/uL L 10^6/uL (4.40-6.38) Hgb 12.4 g/dL L g/dL (13.7-17.5) Hct 37.7 % L % (40.0-51.0) MCV 90.6 fL fL (81.5-99.8) MCH 29.8 pg pg (27.9-34.1) MCHC 32.9 g/dL g/dL (32.4-36.7) RDW 14.8 % % (11.5-15.2) Plt Count 249 10^3/uL 10^3/uL (150-400) MPV 9.5 fL fL (8.7-11.7) Neut % (Auto) 70.8 % % (39.3-74.2) Lymph % (Auto) 14.5 % L % (15.0-45.0) [place] % (Auto) 11.1 % % (4.5-13.0) Eos % (Auto) 2.6 % % (0.6-7.6) Baso % (Auto) 0.4 % % (0.3-1.7) Nucleat RBC Rel Count 0.0 % % (0.0-0.2) Absolute Neuts (auto) 5.47 10^3/uL 10^3/uL (1.70-6.50) Absolute Lymphs (auto) 1.12 10^3/uL 10^3/uL (1.00-3.00) Absolute Monos (auto) 0.86 10^3/uL H 10^3/uL (0.30-0.80) Absolute Eos (auto) 0.20 10^3/uL 10^3/uL (0.03-0.40) Absolute Basos (auto) 0.03 10^3/uL 10^3/uL (0.02-0.10) Absolute Nucleated RBC 0.00 10^3/uL 10^3/uL (0-0.01) Immature Gran % 0.6 % % (0.0-1.1) Immature Gran # 0.05 10^3/uL 10^3/uL (0.00-0.10) PT INR APTT D-Dimer VBG Lactic Acid 1.3 mmol/L mmol/L (0.7-2.1) Sodium Potassium Chloride Carbon Dioxide Anion Gap BUN Creatinine Estimated GFR Glucose Calcium Total Bilirubin Conjugated Bilirubin Unconjugated Bilirubin AST ALT Alkaline Phosphatase Troponin I Total Protein Albumin Procalcitonin Microbiology Results: MICROBIOLOGY 09/10/17 13:15 Nasal, Sinus - Holloway Viral Transport Respiratory Panel ( PCR) - Final No Organism Detected Medications Given: Albuterol/Ipratropium (Duoneb) 3 ml IH Q6HRS SHERIDAN Stop: 03/09/18 17:59 Last Admin: 09/10/17 17:31 Dose: 3 ml Gabapentin (Neurontin) 300 mg PO Q6HRS SHERIDAN Stop: 03/09/18 17:59 Last Admin: 09/10/17 18:01 Dose: 300 mg Multivitamins/Minerals (Preservision Areds2 Formula) 1 each PO BIDMEAL SHERIDAN Stop: 03/09/18 17:59 Last Admin: 09/10/17 18:01 Dose: 1 each Discontinued Medications Albuterol/Ipratropium (Duoneb) 3 ml IH EDNOW ONE Stop: 09/10/17 13:11 Last Admin: 09/10/17 13:19 Dose: 3 ml Sodium Chloride (Ns) 1,000 mls @ 0 mls/hr IV EDNOW ONE; Wide Open PRN Reason: Protocol Stop: 09/10/17 15:28 Last Admin: 09/10/17 15:52 Dose: 1,000 mls Methylprednisolone Sodium Succinate (Solu-Medrol) 125 mg IVP EDNOW ONE Stop: 09/10/17 13:11 Last Admin: 09/10/17 13:20 Dose: 125 mg Departure - Departure Disposition: [facility] Inpatient Acute Clinical Impression: Pneumonia, Sepsis Condition: Fair
--- NOTE | 2017-09-10 13:20 | CPEKG ---
Heart Rate: 78 RR Interval: 769 P-R Interval: 152 QRSD Interval: 90 QT Interval: 364 QTC Interval: 415 P [place]: 41 QRS [place]: 65 T Wave [place]: 69 EKG Severity - NORMAL ECG - EKG Impression: SINUS RHYTHM Electronically Signed By: Gopi Palomino 10-Sep-2017 13:41:18
[2017-09-10 13:25] LABS: PLATELET COUNT 249 10^3/uL (150-400)
[2017-09-10 13:36] LABS: INR 1.07 (0.83-1.16); PROTIME(PATIENT) 14.1 SEC (12.0-15.0)
[2017-09-10] MEDS ORDERED: IOPAMIDOL (ISOVUE 370) 100 ML BTL IV ONE (15:25)
[2017-09-10] MEDS ORDERED: NS 1,000 ML IV ONE (15:27)
[2017-09-10] MEDS ORDERED: ONDANSETRON 4 MG/2 ML VIAL IVP PRN (15:28)
[2017-09-10] MEDS ORDERED: ONDANSETRON DISINTEGRATING 4 MG TAB PO PRN (15:28)
[2017-09-10] MEDS ORDERED: ACETAMINOPHEN 325 MG TAB PO PRN (15:28)
--- NOTE | 2017-09-10 16:29 | ASMTCMCOM ---
CM Note CM Note Notes: Pt presented to the Emergency Department with worsening shortness of breath. History includes severe COPD, pt wears 15L oxymizer at baseline, interstitial lung disease, emphysema, high cholesterol. He is a former smoker; he drinks 2 beers/day. Pt was hospitalized last month for community-acquired pneumonia Pt is and lives with his Alda [phone], independently. He has a stepson and his son's Domonique are involved in his care. Per prior CM notes, pt recently enrolled in [facility]. He is followed by a law librarian Dr. Mariee and by [facility] for Cardiology. His home O2 company is [employer]. The pt is also being followed by [facility] outpatient services. Discharge needs remain unclear at this time. CM will continue to follow. Current Discharge Plan: To be determined Date Signed: 09/10/2017 04:26 PM Electronically Signed By:Chandni Helm RN
--- NOTE | 2017-09-10 16:35 | GHP ---
[f rep st] HISTORY AND PHYSICAL DATE OF ADMISSION: 09/10/2017 CHIEF COMPLAINT: Dhqtf-xl-[id number] hypoxemic respiratory failure, cough, fever. Primary mine shifter: Dr. Mariee. HISTORY OF PRESENT ILLNESS: The patient is a pleasant 71-year-old male, with history of chronic hypoxemic respiratory failure on 15 L, ILD, COPD, recently hospitalized 08/12-08/16/2017, for left lower lobe pneumonia. Presents today with new cough for the past 4 days with productive yellow sputum after just finishing prednisone taper. Has fevered to 104 at home. Awoke this morning, drenched in sweat, with chills. He felt like he has been gasping just when walking to bathroom; oxygen levels dropped to 70s, and he had to use an extra tank to bring up his saturation. He had no appetite yesterday, but normal energy level. Denies ill contacts. No recent travel. No chest pain. No lower extremity swelling. No PND or pillow orthopnea. REVIEW OF SYSTEMS: I completed a 10-point review of systems, negative except as noted in HPI. PAST MEDICAL HISTORY: Again, ILD, COPD, chronic hypoxemic respiratory failure on 15 L, hypertension, gout. Echo 08/26/2017, EF of 50% to 55%, grade 1 diastolic heart failure, moderate MR. Leg DVT SOCIAL HISTORY: Lives with his in [place]. Had smoked 2 packs a day for 20 years. Social alcohol. FAMILY HISTORY: Mother recently passed with a stroke. Father of an aortic aneurysm. HOME MEDICATIONS: Robitussin, herbal supplements, albuterol inhaler as needed, multivitamin, TRELEGY ELLIPTA, melatonin, gabapentin 300 mg q.6 hours, atorvastatin 20 mg q.h.s., Hayes 5/325 q.6 hours p.r.n., Norvasc 10, calcium carbonate/vitamin D3, Tylenol as needed. ALLERGIES: No known drug allergies. PHYSICAL EXAMINATION: VITAL SIGNS: Temperature 36.8, blood pressure 118/62, heart rate is in the 80s, respiration 14-24, 90% on 15 L Oxymizer. GENERAL: Well-nourished male lying in bed. No acute distress. HEENT: PERRLA. EOMI. Oropharynx clear. CV: Regular rate, rhythm. Trace ankle edema. LUNGS: Diminished throughout with a few expiratory wheezes. Coughing during my exam. GI: Obese. Soft, nontender, nondistended. Positive bowel sounds. : No [place]. MUSCULOSKELETAL: 5/5 upper and lower extremity strength. NEUROLOGIC: 2 through 12 intact. PSYCH: Alert and oriented x3. LABORATORY DATA: WBC 7.7, hemoglobin 12, hematocrit 37, platelets 249. D- dimer is 1.95. Lactate is 1.3. Sodium 141, potassium 4.2, chloride 106, carbon dioxide 26, anion gap 9, creatinine is 1, glucose is 99, total bilirubin 1.6, conjugated 0.3, unconjugated 1.3, AST 26, ALT 37, alk phos 105. Troponin less than 0.012. Total protein 6.4, albumin is 3.6, procalcitonin pending. Respiratory panel pending. IMAGING: Chest x-ray is personally reviewed by me. Left upper and lower lobe opacity. The upper lobe opacity appears new from prior. EKG, personally reviewed by me, normal sinus rhythm. No ST depression. ASSESSMENT/PLAN: 1. Epcfm-mf-ipkblsm hypoxemic respiratory failure: concern for recurrent PNA or viral infection. Trop/EKG negative for ischemia. CTA pending. Recently treated for LLL PNA with LQ. There does appear to be new LUE opacity. Resp PCR pending. Empirically treat with Cefepime until procalcitonin back. High-dose steroids, DuoNeb, and cough suppressants. 2. Fever:, likely a viral vs. bacterial pneumonia. Denies other infectious symptoms. Blood cultures done in ER. 3. Hypertension. Blood pressure controlled now. Will hold Norvasc. 4. Gout. No evidence of flare. 5. COPD exacerbation: IV steroids, Nebs. Will have pulmonary evaluate him in the morning 6. Interstitial lung disease is followed by Dr. Mariee as an outpatient. 7. h/o LE DVT: denies swelling, pain in legs 8. Deep venous thrombosis prophylaxis, high risk. Lovenox. Disp: Patient warrants inpatient admission for [id number]-ahexiqu hypoxemic respiratory failure; requires IV antibiotics, CT scan, and pulmonary evaluation. Critical care time spent: 40 min evaluating prior notes, imaging and examining patient, coordinating treatment plan. /[id number]/MODL MTDD
[2017-09-10] MEDS: IPRATROPIUM/ALBUTEROL 3 ML DEYVIAL IH SCH ×3 (17:31→23:32)
--- NOTE | 2017-09-10 17:57 | PDMN ---
Medical Necessity Medical necessity: C/M review: Patient meets INPT criteria under [facility] M-282 Pneumonia, Community Acquired, M-100 Chronic Obstructive Pulmonary Disease: Acute - hypoxemic respiratory failure, fever to 104 degrees at home- likely viral versus bacterial pneumonia, new left upper lobe opacity on CXR from prior imaging, COPD exacerbation, 90-94% sats on 15l/min O2 via oxymask requiring planned Pulmonary consult, ongoing Duonebs QID, IV Cefepime Q 8 hrs., IV Solumedrol Q 8 hrs., pulse oximetry, supplemental O2, comorbid hospitalization - 08/16/2017 for left lower lobe pneumonia, history of COPD. ILD, chronic hypoxemic respiratory failure on 15l/min O2, gout, history of grade 1 diastolic failure, moderate mitral regurgitation and leg DVT. anticipates . 2 MN LOS for ongoing med nec for eval and TX of above. Patient is Medicare Advantage which follows guidelines CMS puts forth.
[2017-09-10] MEDS: GABAPENTIN 300 MG CAP PO SCH ×2 (18:01→23:14)
[2017-09-10] MEDS: PRESERVISION AREDS2 FORMULA EYE VIT 1 EACH PO SCH (18:01)
[2017-09-10] MEDS: CALCIUM CARB W/VIT D 500 MG TAB PO SCH (20:57)
[2017-09-10] MEDS: methylPREDNISolone SOD SUCC 40 MG/ML VIAL IVP SCH (20:58)
[2017-09-10] MEDS: MELATONIN 3 MG TAB PO SCH (20:58)
[2017-09-10] MEDS: CEFEPIME HCL 2 GM in STERILE WATER INJ 12.5 ML IV SCH (20:58)
[2017-09-10] MEDS: ATORVASTATIN CALCIUM 20 MG TAB PO SCH (20:58)
[2017-09-10] MEDS ORDERED: NON-FORMULARY NEW DRUG (Vit C/Dl-E Ac/Lut/Copper/Znox [Preservision Softgel] 1 EACH) PO SCH (21:00)
[2017-09-10] MEDS ORDERED: NON-FORMULARY NEW DRUG (Melatonin [Melatonin 5 Mg] 5 MG) PO SCH (21:00)
[2017-09-10] MEDS ORDERED: CEFEPIME HCL 2 GM in STERILE WATER INJ 12.5 ML IV SCH (22:00)
[2017-09-11] MEDS: guaiFENesin 200 MG/10 ML UDL PO PRN ×5 (01:00→22:32)
[2017-09-11] MEDS: BENZONATATE 100 MG CAP PO PRN ×3 (01:00→18:17)
[2017-09-11] MEDS: GABAPENTIN 300 MG CAP PO SCH ×4 (05:34→23:14)
[2017-09-11] MEDS: methylPREDNISolone SOD SUCC 40 MG/ML VIAL IVP SCH (05:34)
[2017-09-11] MEDS: CEFEPIME HCL 2 GM in STERILE WATER INJ 12.5 ML IV SCH ×3 (05:35→23:14)
[2017-09-11] MEDS: IPRATROPIUM/ALBUTEROL 3 ML DEYVIAL IH SCH ×3 (05:39→20:28)
[2017-09-11] MEDS: PRESERVISION AREDS2 FORMULA EYE VIT 1 EACH PO SCH ×2 (08:59→18:17)
[2017-09-11] MEDS: MULTIVITAMINS 1 EACH TAB PO SCH (08:59)
[2017-09-11] MEDS: ENOXAPARIN 40 MG/0.4 ML SYR SC SCH (08:59)
[2017-09-11] MEDS: CALCIUM CARB W/VIT D 500 MG TAB PO SCH ×2 (08:59→22:32)
[2017-09-11] MEDS ORDERED: Herbals/Supplements -Info Only PO SCH (09:00)
[2017-09-11] MEDS ORDERED: ALBUTEROL 60 PUFFS/8 GM MDI IH PRN (10:25)
[2017-09-11] MEDS ORDERED: IPRATROPIUM/ALBUTEROL 3 ML DEYVIAL IH PRN (10:27)
[2017-09-11] MEDS: VILANTER IH SCH ×2 (10:28→10:42)
[2017-09-11] MEDS: FLUTICASONE IH SCH ×2 (10:28→10:42)
[2017-09-11] MEDS: UMECLIDIN IH SCH ×2 (10:28→10:42)
[2017-09-11] MEDS: predniSONE 20 MG TAB PO SCH (10:46)
--- NOTE | 2017-09-11 16:01 | HOSPPROG ---
Hospitalist Progress Note Assessment/Plan: Assessment: 71 yo M p/w acute on chronic hypoxic respiratory failure 2/2 suspected recurrent CHIKIS pneumonia Plan: # Acute on chronic hypoxic respiratory failure. Evidenced by objective tachypnea (RR 24) w/ visibly labored breathing w/ any movement + increase in o2 needs from 8LPM at rest to 15LPM face mask (86% on 10LPM), likely 2/2 recurrent CHIKIS pneumonia -cont on high flow o2, 15LPM -cont tx for PNA + resumption of steroids (recently discontinued, 2 days prior) and PRN duonebs -anticipated protracted recovery, as his underlying ILD is severe and these situations usually only marginally improve, and they do so very slowly # Suspected recurrent CHIKIS pneumonia. POA, evidenced by new CHIKIS infiltrate on CT (personally interpreted) -d/w Dr. Robertson, we both agree that despite the low PCT and WBC, the patient's symptoms (worsening SOB) + signs (fever, sputum, resp failure) are likely from PNA, and, given that he was recently treated w/ fluoroquinalone, will use broad- spectrum cephalosporin -cont D#2 Cefepime -Cx pending -RVP neg -EKG w/ NSR (personally interpreted) # HTN. Chronic, cont home Rx Diet. Regular PPx. High risk, lovenox 40 Code. Full Dispo. ADD uncertain, remains on high flow o2, clinically unresolved High level of medical complexity and severity of illness with high risk of worsening morbidity and/or mortality 2/2 issues outlined above. Subjective: ongoing cough, not much improvement from day prior, SOB w/ any activity Objective: Vital Signs Temp Pulse Resp BP Pulse Ox 36.7 C 98 18 109/50 L 92 09/11/17 11:55 09/11/17 11:55 09/11/17 10:25 09/11/17 11:55 09/11/17 11:55 Microbiology 09/11/17 06:00 - Final Sputum, Expectorated 09/10/17 09/11/17 09/12/17 05:59 05:59 05:59 Intake Total 3300 1000 Balance 3300 1000 PT 14.1 SEC (12.0-15.0) 09/10/17 13:01 INR 1.07 (0.83-1.16) 09/10/17 13:01 - Physical Exam Constitutional: not in pain, chronically ill appearing, obese, uncomfortable Cardiovascular: regular rate and rhythym, systolic murmur (I/ at sternum L), No tachycardia, No edema Respiratory: reduced air movement (L upper post seg), expiratory wheeze (faint in L upper post seg), respiratory distress (visible tachypnea), rhonchi (L uppper post seg), No bronchial breath sounds Gastrointestinal: normoactive bowel sounds, soft, non-tender abdomen, no palpable masses Neurologic: AAOx3, sensation intact bilaterally, No weakness Psychiatric: interacting appropriately, not anxious, not encephalopathic, thought process linear ICD10 Worksheet Patient Problems: Problems Problem Status Onset Osteoarthritis of knee Acute Shortness of breath Acute COPD exacerbation Acute Pneumonia Acute Sepsis Acute
--- NOTE | 2017-09-11 18:05 | GCON ---
[f rep st] CONSULTATION PULMONARY CRITICAL CARE CONSULTATION DATE OF CONSULTATION: 09/11/2017 REASON FOR CONSULTATION: Pneumonia in a patient with underlying COPD, interstitial lung disease, and severe hypoxemia. HISTORY: The patient is a very pleasant gentleman, who is known to our office. I admitted 1 month a go with increasing shortness of breath. He comes in now secondary to cough, associated with yellow m ucus over the last 3 days. This was associated with increasing shortness of breath, chills, sweats, and fevers to as high as 104. He had an increased hypoxemia. He presented to the emergency room. C T angiogram was done again and showed no evidence of pulmonary embolic disease, but a new left upper lobe infiltrate. He was admitted and started on antibiotics for pneumonia. He is on cefepime. Solu -Medrol was initially given. He is now on prednisone at 60 mg per day. He is in the intensive care unit as a step-down patient. He has a history of COPD secondary to a long history of tobacco abuse. He quit smoking about 30 years ago. He has known interstitial lung disease and severe hypoxemia. Donn crockett uses oxygen at home 8 L at rest and with sleeping. He will turn his oxygen up to 15 L with light e xertional activities and 25 L with heavier exertional activities. He recently completed a prolonged steroid wean. He generally sees Dr. Mariee in the office and has an appointment to see him in approx imately 2 weeks. PAST MEDICAL HISTORY: Remarkable for COPD/bullous emphysema/interstitial lung disease and profound h ypoxemia as outlined above. Pulmonary function studies actually have looked fairly good with a vital capacity of 86% of predicted and FEV1 of 2.4 L, 74% of predicted, and normal lung volumes. However, DLCO is profoundly decreased at 26% of predicted. DRUG ALLERGIES: No known drug allergies. SOCIAL HISTORY: The patient is . He has a very supportive . Alcohol is negative. He is full cor, per his advanced directives. FAMILY HISTORY: Noncontributory. Hypertension. REVIEW OF SYSTEMS: Negative except as noted in the HPI. PHYSICAL EXAMINATION: GENERAL: A very pleasant gentleman who is somewhat cushingoid and overweight. He is on 10 L by Oxymizer with saturations in the upper 80s. VITAL SIGNS: Blood pressure is 126/4 8, heart rate 96 with sinus rhythm on the monitor. He appears comfortable, is in no distress. He is not using accessory muscles. HEENT: Unremarkable for lymphadenopathy or thyromegaly. There is no obvious jugular venous distention. PULMONARY: The chest reveals decreased breath sounds bilaterally . With exhalation and cough, there are some central rhonchi. Expiratory phase is prolonged without significant wheezes. Rales are noted over the left upper lobe area posteriorly. HEART: Regular in rate and rhythm. Heart tones are quite distant. ABDOMEN: Overweight, soft, nontender. Bowel sound s are present. EXTREMITIES: Remarkable for trace plus edema. DATA REVIEWED: CT scan of the chest is as outlined above. White blood cell count is 7700, hematocrit 37, platelets 249,000. PT and PTT were normal on admissio n. No arterial blood gas was done. Venous lactate is 1.3. Basic metabolic panel is normal. Total bilirubin 1.6 with normal LFTs. Normal troponin. Procalcitonin is 0.08. A respiratory panel is neg ative. Blood and sputum cultures are pending. ASSESSMENT: 1. Left upper lobe pneumonia. This is new compared to his admission of 1 month ago. This is associ ated with fevers, chills, sweats, and increased hypoxemia. However, despite the new pneumonia and [place] underlying pulmonary issues, he clinically is doing quite well and is in no distress. 2. History of chronic obstructive pulmonary disease and emphysema. 3. History of interstitial lung disease. 4. History of profound hypoxemia, associated with his lung disease as outlined above. DLCO is also markedly reduced. Oxygen requirements on this admission appear to be close to his baseline. RECOMMENDATIONS: Patient will be kept in the intensive care unit as a step-down status patient. Terri maciel prednisone will be continued. Cefepime will be continued. Mucolytics will be given. DuoNeb will be changed to scheduled from p.r.n. He also has albuterol which he can use on a p.r.n. basis. Loven ox will be given for DVT prophylaxis. Prednisone will be continued at 60 mg per day for now. Bronch opulmonary therapies, IS, and early mobilization will be encouraged. Laboratory and chest x-ray will be followed intermittently. Further plans and recommendations will be made based on his progress over the next 12-24 hours. /[id number]/MODL
[2017-09-11] MEDS: ATORVASTATIN CALCIUM 20 MG TAB PO SCH (22:32)
[2017-09-11] MEDS: MELATONIN 3 MG TAB PO SCH (22:32)
[2017-09-12] MEDS: CEFEPIME HCL 2 GM in STERILE WATER INJ 12.5 ML IV SCH ×3 (05:34→21:47)
[2017-09-12] MEDS: GABAPENTIN 300 MG CAP PO SCH ×3 (05:34→17:46)
[2017-09-12] MEDS: guaiFENesin 200 MG/10 ML UDL PO PRN (05:34)
[2017-09-12] MEDS: IPRATROPIUM/ALBUTEROL 3 ML DEYVIAL IH SCH ×4 (05:58→19:43)
[2017-09-12] MEDS: VILANTER IH SCH (09:00)
[2017-09-12] MEDS: FLUTICASONE IH SCH (09:00)
[2017-09-12] MEDS: UMECLIDIN IH SCH (09:00)
--- NOTE | 2017-09-12 09:06 | PDINTPN ---
Exit Booth Agent Progress Note Assessment/Plan: Assessment/plan: * Left lower lobe pneumonia -continue current antibiotics * Severe chronic obstructive pulmonary disease -continue steroids and nebs * Interstitial lung disease * Acute on Chronic respiratory failure-improving -wean FiO2 as tolerated * Obstructive sleep apnea * VTE prophylaxis * PT/OT * Out of bed to chair * Disposition-patient appears to improved will transfer him to PCU Subjective: Resting comfortably. Feels markedly better. Still complains of cough. Objective: Vital Signs Temp Pulse Resp BP Pulse Ox 36.6 C 83 15 131/58 H 96 09/12/17 07:56 09/12/17 07:56 09/12/17 07:56 09/12/17 07:56 09/12/17 07:56 Microbiology 09/11/17 06:00 - Final Sputum, Expectorated 09/11/17 09/12/17 09/13/17 05:59 05:59 05:59 Intake Total 3300 2327 Balance 3300 2327 PT 14.1 SEC (12.0-15.0) 09/10/17 13:01 INR 1.07 (0.83-1.16) 09/10/17 13:01 - Time Spent With Patient Time Spent With Patient: 35 min of time spent with patient, over 1/2 involved with coordination of care counseling. Physical Exam - Physical Exam General Appearance: alert, no apparent distress EENT: PERRL/EOMI Neck: non-tender, full range of motion, supple, normal inspection Respiratory: crackles (Bibasilar), rales (Few), No respiratory distress, No wheezing Cardiac/Chest: normal peripheral pulses, regular rate, rhythm, systolic murmur Peripheral Pulses: 2+: carotid (R), carotid (L), femoral (R), femoral (L), dorsalis-pedis (R), dorsalis-pedis (L) Abdomen: normal bowel sounds, non-tender, soft Male Genitalia: deferred Rectal: deferred Skin: normal color, warm/dry Extremities: normal range of motion, non-tender, normal inspection, normal capillary refill Neuro/Psych: no motor/sensory deficits, alert, normal mood/affect, oriented x 3 ICD10 Worksheet Patient Problems: Problems Problem Status Onset Pneumonia Acute Sepsis Acute COPD exacerbation Acute Osteoarthritis of knee Acute Shortness of breath Acute
[2017-09-12] MEDS: MULTIVITAMINS 1 EACH TAB PO SCH (09:08)
[2017-09-12] MEDS: PRESERVISION AREDS2 FORMULA EYE VIT 1 EACH PO SCH ×2 (09:08→17:46)
[2017-09-12] MEDS: predniSONE 20 MG TAB PO SCH (09:08)
[2017-09-12] MEDS: CALCIUM CARB W/VIT D 500 MG TAB PO SCH ×2 (09:08→21:00)
[2017-09-12] MEDS: ENOXAPARIN 40 MG/0.4 ML SYR SC SCH (09:09)
[2017-09-12] MEDS ORDERED: SODIUM CL NASAL 45 ML BTL EACHNARE PRN (09:54)
[2017-09-12] MEDS ORDERED: guaiFENesin/CODEINE PHOS 10 ML UDCUP PO PRN (15:00)
[2017-09-12] MEDS: guaiFENesin 600 MG TAB.ER PO SCH ×2 (15:51→21:01)
--- NOTE | 2017-09-12 16:01 | ASMTCMCOM ---
CM Note CM Note Notes: 09/12/2017 Case Management Note Met w/pt to discuss d/c needs. Pt was unable to meet with [facility] JIGGER ARTISAN before being readmitted to hospital. Initial sppointment was scheduled for today. Notified [facility] of admission. Faxed referral to [facility] with updates. Notified Juanito from [facility] Palliative Team. PT is recommending home. Case Management d/c poc: anticipating home with resumption of [facility] Pall[facility] care. Case Management to follow. Date Signed: 09/12/2017 04:00 PM Electronically Signed By:Shea Marin RN
--- NOTE | 2017-09-12 17:14 | HOSPPROG ---
Hospitalist Progress Note Assessment/Plan: Assessment: 71 yo M p/w acute on chronic hypoxic respiratory failure 2/2 suspected recurrent CHIKIS pneumonia Plan: # Acute on chronic hypoxic respiratory failure. Evidenced by objective tachypnea (RR 24) w/ visibly labored breathing w/ any movement + increase in o2 needs from 8LPM at rest to 15LPM face mask (86% on 10LPM), likely 2/2 recurrent CHIKIS pneumonia -cont on high flow o2, 15LPM, BiPAP o/n -cont tx for PNA + steroids (recently discontinued, 2 days prior) and PRN duonebs -anticipated protracted recovery, as his underlying ILD is severe and these situations usually only marginally improve, and they do so very slowly # Suspected recurrent CHIKIS pneumonia. POA, evidenced by new CHIKIS infiltrate on CT -d/w Dr. Mariee, he recommends cont D#2 Cefepime and will transition to oral equivalent at DC -will increase supportive cough care w/ mucinex, guaif/cod, tessalon, and add acetylcysteine tomorrow if appears to have ongoing unexpectorated mucous # HTN. Chronic, cont home Rx Diet. Regular PPx. High risk, lovenox 40 Code. Full Dispo. ADD uncertain, remains on high flow o2, clinically unresolved Subjective: continues to have cough, reports the robitussin made cough feel worse Objective: Vital Signs Temp Pulse Resp BP Pulse Ox 36.6 C 84 18 151/86 H 94 09/12/17 15:48 09/12/17 16:06 09/12/17 16:06 09/12/17 15:48 09/12/17 16:06 Microbiology 09/11/17 06:00 - Final Sputum, Expectorated 09/11/17 09/12/17 09/13/17 05:59 05:59 05:59 Intake Total 3300 2327 Balance 3300 2327 PT 14.1 SEC (12.0-15.0) 09/10/17 13:01 INR 1.07 (0.83-1.16) 09/10/17 13:01 - Physical Exam Constitutional: no apparent distress, not in pain, obese, uncomfortable Cardiovascular: regular rate and rhythym, systolic murmur (I/ at L sternum), No tachycardia, No edema Respiratory: rhonchi (on insp CHIKIS), No reduced air movement, No expiratory wheeze, No bronchial breath sounds, No respiratory distress Gastrointestinal: normoactive bowel sounds, soft, non-tender abdomen, no palpable masses, No distension Neurologic: AAOx3 Psychiatric: interacting appropriately, not anxious, not encephalopathic, thought process linear ICD10 Worksheet Patient Problems: Problems Problem Status Onset Osteoarthritis of knee Acute Shortness of breath Acute COPD exacerbation Acute Pneumonia Acute Sepsis Acute
[2017-09-12] MEDS: BENZONATATE 100 MG CAP PO PRN (19:11)
[2017-09-12] MEDS: ATORVASTATIN CALCIUM 20 MG TAB PO SCH (21:00)
[2017-09-12] MEDS: MELATONIN 3 MG TAB PO SCH (21:01)
[2017-09-12] MEDS: HYDROCODONE/APAP 5/325 TAB PO PRN (21:05)
[2017-09-13] MEDS: GABAPENTIN 300 MG CAP PO SCH ×3 (02:06→10:57)
[2017-09-13] MEDS: CEFEPIME HCL 2 GM in STERILE WATER INJ 12.5 ML IV SCH (05:10)
[2017-09-13] MEDS: IPRATROPIUM/ALBUTEROL 3 ML DEYVIAL IH SCH ×2 (05:43→11:58)
[2017-09-13] MEDS: BENZONATATE 100 MG CAP PO PRN (07:21)
[2017-09-13] MEDS: PRESERVISION AREDS2 FORMULA EYE VIT 1 EACH PO SCH (07:49)
[2017-09-13] MEDS: CALCIUM CARB W/VIT D 500 MG TAB PO SCH (07:49)
[2017-09-13] MEDS: predniSONE 20 MG TAB PO SCH (07:50)
[2017-09-13] MEDS: guaiFENesin 600 MG TAB.ER PO SCH (07:50)
[2017-09-13] MEDS: MULTIVITAMINS 1 EACH TAB PO SCH (07:51)
[2017-09-13] MEDS: ENOXAPARIN 40 MG/0.4 ML SYR SC SCH (08:17)
[2017-09-13] MEDS: HYDROCODONE/APAP 5/325 TAB PO PRN (09:37)
[2017-09-13] MEDS: UMECLIDIN IH SCH (09:44)
[2017-09-13] MEDS: VILANTER IH SCH (09:44)
[2017-09-13] MEDS: FLUTICASONE IH SCH (09:44)
[2017-09-13 12:02] VITALS: BP 132/70
--- NOTE | 2017-09-13 12:47 | SOAPPROG ---
SOAP Progress Note Assessment/Plan: Assessment/plan: * Left lower lobe pneumonia -change to oral antibiotics * Severe chronic obstructive pulmonary disease -continue steroids and nebs * Interstitial lung disease * Acute on Chronic respiratory failure-improving -wean FiO2 as tolerated * Obstructive sleep apnea * VTE prophylaxis * PT/OT * Out of bed to chair * Disposition-okay for home from a pulmonary standpoint. He has an appointment to see me on September 19 Subjective: Breathing easily. Comfortable. Wishes to be discharged home. Objective: Vital Signs Temp Pulse Resp BP Pulse Ox 36.7 C 88 20 132/70 H 89 L 09/13/17 12:00 09/13/17 12:00 09/13/17 12:00 09/13/17 12:00 09/13/17 12:00 Microbiology 09/11/17 06:00 - Final Sputum, Expectorated Sputum Culture - Final 09/12/17 09/13/17 09/14/17 05:59 05:59 05:59 Intake Total 2327 930 Balance 2327 930 PT 14.1 SEC (12.0-15.0) 09/10/17 13:01 INR 1.07 (0.83-1.16) 09/10/17 13:01 - Time Spent With Patient Time Spent With Patient: 25 min of time spent with patient, over 1/2 involved with coordination of care or counseling Physical Exam - Physical Exam General Appearance: alert, no apparent distress EENT: PERRL/EOMI, normal ENT inspection, pharynx normal, TMs normal Neck: non-tender, full range of motion, supple, normal inspection Respiratory: crackles (Bibasilar), No respiratory distress, No wheezing Cardiac/Chest: normal peripheral pulses, regular rate, rhythm, systolic murmur Abdomen: normal bowel sounds, non-tender, soft Male Genitalia: deferred Rectal: deferred Skin: normal color, warm/dry Extremities: normal range of motion, non-tender, normal inspection, normal capillary refill Neuro/Psych: no motor/sensory deficits, alert, normal mood/affect, oriented x 3 ICD10 Worksheet Patient Problems: Problems Problem Status Onset Pneumonia Acute Sepsis Acute COPD exacerbation Acute Osteoarthritis of knee Acute Shortness of breath Acute
--- NOTE | 2017-09-13 14:44 | ASMTLACE ---
[facility] Length of stay for Answers: 2 days current admission Acuity / Level of Answers: Yes Care: Did the patient have an inpatient admission? Comorbidities - select Answers: Chronic pulmonary disease all that apply Other Notes: interstitial lung disease, emphysema, hig h cholesterol # of Emergency department Answers: 1-2 visits in the last 6 months Social determinants Answers: History of substance abuse (ETOH, street drugs, prescription drugs, etc.) Score: 12 Date Signed: 09/13/2017 02:43 PM Electronically Signed By:Shea Marin RN
--- NOTE | 2017-09-13 14:50 | ASDISCHSUM ---
Discharge Information Plan Status:Outpatient Palliative Care Medically Cleared to Leave:09/13/2017 Discharge Date:09/13/2017 CM D/C Disposition:Home, Routine, Self-Care ADT D/C Disposition:Home, Routine, Self-Care Projected Discharge Date:09/14/2017 11:00 AM Transportation at D/C:Family Discharge Delay Reason: Follow-Up Date:09/14/2017 11:00 AM Discharge Slot: Final Diagnosis:severe COPD with 15L oxygen, interstitial lung disease, PNA, emphysema, high cholest rayne Placement Information Referral Type:Palliative Care Referral ID:[id number] Provider Name:[facility] Address 1:[address] Phone Number: Address 2: Fax Number: City:[place] Selection Factors: State:[place] Patient Contact Information Contact Name:AYANNAJENNIFERJESSICAORESTES Relationship: Address:[facility] Work Phone: [facility] Phone: [facility]/Zip Code:[place] [address] Email: Financial Information Financial Class:Medicare Advantage Plans Primary Plan Desc:[employer] GOLD MEDICARE Primary Plan Number:[id number] Secondary Plan Desc: Secondary Plan Number: Assessment Information LACE LACE Length of stay for Answers: 2 days current admission Acuity / Level of Answers: Yes Care: Did the patient have an inpatient admission? Comorbidities - select Answers: Chronic pulmonary disease all that apply Other Notes: interstitial lung disease, emphysema, hig h cholesterol # of Emergency department Answers: 1-2 visits in the last 6 months Social determinants Answers: History of substance abuse (ETOH, street drugs, prescription drugs, etc.) Score: 12 Date Signed: 09/13/2017 02:43 PM Electronically Signed By:Shea Marin RN [facility] CM Progress Note CM Note CM Note Notes: Pt presented to the Emergency Department with worsening shortness of breath. History includes severe COPD, pt wears 15L oxymizer at baseline, interstitial lung disease, emphysema, high cholesterol. He is a former smoker; he drinks 2 beers/day. Pt was hospitalized last month for community-acquired pneumonia Pt is and lives with his Alda [phone], independently. He has a stepson and his son's Domonique are involved in his care. Per prior CM notes, pt recently enrolled in [place] [facility]. He is followed by a hairspring i inspector Dr. Mariee and by [facility] for [facility]iology. His home O2 company is [employer]. The pt is also being followed by [facility] outpatient services. Discharge needs remain unclear at this time. CM will continue to follow. Current Discharge Plan: To be determined Date Signed: 09/10/2017 04:26 PM Electronically Signed By:Chandni Helm RN [facility] CM Progress Note CM Note CM Note Notes: 09/12/2017 Case Management Note Met w/pt to discuss d/c needs. Pt was unable to meet with [facility] Palliative [employer] SANDB[employer] APPRENTICE before being readmitted to hospital. Initial sppointment was scheduled for today. Notified [facility] Pall[facility] of admission. Faxed referral to [facility] with updates. Notified Juanito from [facility] Palliative Team. PT is recommending home. Case Management d/c poc: anticipating home with resumption of [facility] Palliative care. Case Management to follow. Date Signed: 09/12/2017 04:00 PM Electronically Signed By:Shea Marin RN Case Management Discharge Plan Note Case Management Discharge Discharge Order Complete? Answers: Yes Patient to Obtain Answers: via Family Medications Transportation Arranged Answers: Family/Friends Discharge Comments Notes: 09/13/2017 Case Management Note Pt to d/c home with [facility] Palliative support once home. Date Signed: 09/13/2017 02:46 PM Electronically Signed By:Shea Marin RN Intervention Information Intervention Type:*IM-Signed Date of Service:09/13/2017 02:49 PM Patient Type:Inpatient Staff Member:Yuly Collins Hours: Discipline: Severity: Comment:
--- NOTE | 2017-09-13 16:45 | PDDCSUM ---
Discharge Summary Discharge Summary: DISCHARGE SUMMARY FOLLOW-UP ITEMS: Arrange outpatient home nebulizer treatment DATE OF ADMISSION: 09/10/2017 DATE OF DISCHARGE: 09/13/2017 DISCHARGE DIAGNOSES: 1. Acute on chronic hypoxic respiratory failure 2. Suspected recurrent left upper lobe pneumonia present on admission 3. Chronic hypertension CONSULTATIONS: Pulmonary PROCEDURES / IMAGING: Chest CT demonstrating definitive left upper lobe infiltrate, otherwise underlying interstitial lung disease CHIEF COMPLAINT: Acute shortness of breath and cough SUBJECTIVE: Patient reports that he is symptomatically feeling better at time discharge, his cough is responding to Tessalon Perles PHYSICAL EXAM ON DISCHARGE: Systolic blood pressure is 130, heart rate 80, satting on 15 L nasal cannula, he is not visibly tachypneic, faint inspiratory rhonchi left upper posterior segment without any reduced air movement, no expiratory wheezes, heart rhythm is regular, regular rate, no lower extremity edema HOSPITAL COURSE BY PROBLEM: 1. Acute on chronic hypoxic respiratory failure. Evidenced by objective tachypnea with respiratory rate of 24, with visibly labored breathing with any movement, as well as an increase in his oxygen requirements from 8 liters/ minutes at rest to 15 liters/minute facemask, notably satting 86% on 10 liters/ minute in the emergency department. The most likely cause was recurrent left upper lobe pneumonia which we further discussed below. Given the patient's underlying interstitial lung disease, he was initiated on IV empiric steroids, scheduled albuterol nebulizer treatments, and we anticipate protracted recovery as an outpatient. He has symptomatically improved and continues to receive as needed Tessalon Perles for cough as well as albuterol nebulizer. We arranged for home albuterol nebulizer and confirm that this would be possible prior to discharge. He will also continue on a steroid taper, starting with 60 mg, with further tapering instructions per Dr. Mariee as an outpatient. He also continue on his current high-flow supplemental oxygen and wean as an outpatient as directed by Dr. Mariee, who he will see in the immediate future. 2. Suspected recurrent left upper lobe pneumonia. Present on admission, evidenced by new left upper lobe infiltrate on chest CT as well as fever at home , increased productive cough, and symptomatic response to cefepime during this hospitalization. Cefepime was chosen given that the patient most recently completed a course of levofloxacin. The patient will continue on 5 subsequent days of oral cefpodoxime for similar spectrum of coverage, and a total 7 days of antibiotic therapy. As outlined above, he will continue on steroid therapy as well as as needed Tessalon Perles. DISCHARGE MEDICATIONS: Please see official discharge medication reconciliation sheet in chart , Tessalon Perles as needed, albuterol nebulizers q.4 hours as needed, cefpodoxime 200 mg twice daily x5 subsequent days, prednisone 60 mg to be tapered every 3 days by 20 mg. DISCHARGE INSTRUCTIONS: Please follow up with Dr. Mariee as scheduled. TIME SPENT: Greater than 30 minutes were spent on direct patient care, as well as discharge planning and preparation.
== END 2017-09-13 15:23 | disposition home health service (06) | DRG 193 ==
LOC: F2N 17:15 → F2W 09-12 12:26
PROVIDERS: ADMIT Internal Medicine; ATTEND Internal Medicine
PROC: 5A09357 Assistance with Respiratory Ventilation, Less than 24 Consecutive Hours, Continuous Positive Airway Pressure (ICD-10-PCS; principal; 2017-09-11)
DX: J18.0 Bronchopneumonia, unspecified organism (principal); J96.21 Acute and chronic respiratory failure with hypoxia; J43.9 Emphysema, unspecified; Z87.891 Personal history of nicotine dependence; J84.9 Interstitial pulmonary disease, unspecified; Z99.81 Dependence on supplemental oxygen; I10 Essential (primary) hypertension; E78.00 Pure hypercholesterolemia, unspecified; M10.9 Gout, unspecified; G47.33 Obstructive sleep apnea (adult) (pediatric); Z86.718 Personal history of other venous thrombosis and embolism
CPT/HCPCS: 96374; 97116-GP; 97161-GP; 97165-GO; 97530-GP; J0692; J1650; J2920; J2930; J7512; Q9967

== ENCOUNTER 2017-10-26 07:52 | Observation (INO) | payer OTHER ==
[2017-10-26] MEDS ORDERED: CLOPIDOGREL BISULFATE 75 MG TAB PO ONE (08:08)
[2017-10-26] MEDS ORDERED: methylPREDNISolone SOD SUCC 125 MG/2 ML VIAL IVP ONE (08:09)
[2017-10-26] MEDS ORDERED: IPRATROPIUM/ALBUTEROL 3 ML DEYVIAL IH ONE (08:09)
--- NOTE | 2017-10-26 08:11 | CPEKG ---
Heart Rate: 106 RR Interval: 566 P-R Interval: 144 QRSD Interval: 92 QT Interval: 324 QTC Interval: 431 P [place]: 47 QRS [place]: 63 T Wave [place]: 71 EKG Severity - ABNORMAL ECG - EKG Impression: SINUS TACHYCARDIA EKG Impression: VENTRICULAR PREMATURE COMPLEX EKG Impression: PROBABLE LEFT ATRIAL ABNORMALITY EKG Impression: BORDERLINE INFERIOR Q WAVES Electronically Signed By: Tio Corbin 26-Oct-2017 09:59:35
[2017-10-26] MEDS ORDERED: IOPAMIDOL (ISOVUE 370) 100 ML BTL IV ONE (08:28)
--- NOTE | 2017-10-26 08:58 | EDPHY ---
H & P Stated Complaint: Chest Pain- since middle of night now 3/10 Time Seen by Provider: 10/26/17 07:56 HPI/ROS: This patient has a complaint of left-sided chest pain described as pleuritic in nature-sharp currently 3/10 but at times up to 8/10 intensity, worse with deep breaths. The pain awakened him from sleep last night. He notes no other exacerbating factors except for mild improvement in the pain after taking Vicodin at home prior to arrival here. He is accompanied by his who brought him in by private vehicle for further evaluation. Patient has a background history of respiratory failure from severe interstitial lung disease and emphysema on home O2 at 15 liters/minute or more at baseline. He had recent hospitalization last month to [facility] for recurrent left upper lobe pneumonia. With this illness he he has noticed a cough over the past 2 weeks he describes as a dry cough. He has not noticed any fevers. He does not recall having this chest pain ever in the past. ROS: Constitutional: No fevers or chills. HEENT: No recent URI symptoms. Pulmonary: No hemoptysis. He reports dyspnea on exertion which is baseline for him the slightly worse recently. Cardiovascular: No chest pain other than the pleuritic pain mentioned in HPI. He reports right leg pain that he attributes tie sciatica. He reports that is mild in intensity. GI: He reports no abdominal pain. No nausea vomiting or diarrhea. : No urinary symptoms. No flank pain. No testicular pain or swelling. No hematuria. Endocrine: No diaphoresis 10 point ROS is otherwise negative Source: Patient Exam Limitations: No limitations - Personal History Current Tetanus/Diphtheria Vaccine: Unsure Current Tetanus Diphtheria and Acellular Pertussis (TDAP): Unsure Tetanus Vaccine Date: < 10 yrs - Medical/Surgical History PMH: Past medical history of severe social lung disease Emphysema Respiratory failure on maximum home O2. He is currently on present on 20 mg a day. Hx Asthma: No Hx Chronic Respiratory Disease: Yes Hx Diabetes: No Hx Cardiac Disease: No Hx Renal Disease: No Hx Cirrhosis: No Hx Alcoholism: No Hx HIV/AIDS: No Hx Splenectomy or Spleen Trauma: No Other PMH: COPD, interstitial lung disease, emphysema, Uses high flow oxygen at homehigh cholesterol - Family History Significant Family History: No pertinent family hx - Social History Smoking Status: Former smoker Alcohol Use: None Drug Use: None - Physical Exam Exam: General Appearance: Alert, with mild respiratory distress arrival tachypneic and hypoxic to 80 or so on supplemental O2 Eyes: Pupils equal and round no pallor or injection. ENT, Mouth: Mucous membranes moist. Respiratory: Rales right base more than left base. No significant wheezing. Initially has 1-2 word dyspnea that improves with supplemental [id number] Cardiovascular: Tachycardic with no murmur gallop rub. No peripheral edema. Gastrointestinal: Abdomen is soft and nontender, no masses, bowel sounds normal. Neurological: GCS 15 with no focal deficits. Skin: Warm and dry, no rashes. Musculoskeletal: Neck is supple nontender. Extremities are symmetrical, full range of motion. Psychiatric: Mood and affect are normal DIFFERENTIAL DIAGNOSIS: After history and physical exam differential diagnosis was considered for pneumonia, pneumothorax, pulmonary embolism, myocardial ischemic disease, COPD exacerbation with musculoskeletal pain Constitutional: Initial Vital Signs Temperature (C) 37.2 C 10/26/17 07:56 Heart Rate 105 H 10/26/17 07:56 Respiratory Rate 20 10/26/17 07:56 Blood Pressure 133/76 H 10/26/17 07:56 O2 Sat (%) 81 L 10/26/17 07:56 O2 Delivery Mode Non-Rebreather Mask O2 (L/minute) 15 Allergies/Adverse Reactions: No Known Allergies Allergy (Verified 10/26/17 08:00) Home Medications: Medication Instructions Recorded Atorvastatin Calcium [Lipitor 20 20 mg PO HS 03/21/13 mg (*)] Calcium Carbonate/Vitamin D3 1 tab PO BID 03/21/13 [Calcium 500-Vit D3 400 Tablet] Multivitamins [Multivitamin (*)] 1 each PO DAILY 03/21/13 amLODIPine BESYLATE [Norvasc 10 mg 10 mg PO HS 03/21/13 (*)] Gabapentin [Neurontin 300 MG (*)] 300 mg PO Q6HRS 08/12/17 Hydrocodone/Acetaminophen [[place] 1 tab PO Q6HRS PRN 08/12/17 5/325 (*)] Acetaminophen [Tylenol ES 500 mg 500 mg PO Q4 PRN 09/10/17 (*)] Albuterol [Proventil Inhaler HFA 2 puffs IH Q4HRS PRN 09/10/17 (*)] Chlorpheniramine/Dextromethorp 10 ml PO BID 09/10/17 [ROBITUSSIN LONG-ACTING LIQ] Fluticasone/Umeclidin/Vilanter 1 each IH DAILY 09/10/17 [Trelegy Ellipta 100-62.5-25] Herbals/Supplements -Info Only 1 ea PO DAILY 09/10/17 Melatonin [Melatonin 5 mg] 5 mg PO HS 09/10/17 Vit C/Dl-E AC/Lut/Copper/Znox 1 each PO BID 09/10/17 [Preservision Softgel] Albuterol Sulfate [ALBUTEROL 1.25 mg IH Q4 PRN #40 09/13/17 SULFATE 1.25 MG/3 ML] Benzonatate [Tessalon Pearles] 200 mg PO TID PRN #40 cap 09/13/17 Cefpodoxime Proxetil [Vantin] 200 mg PO BID #11 tab 09/13/17 Sodium Cl Nasal [[place] (*)] 1 spray EACHNARE PRN PRN btl 09/13/17 predniSONE 60 mg PO DAILY #18 tablet 09/13/17 Medical Decision Making - Diagnostics EKG Interpretation: 12 lead EKG performed shortly after arrival at 7:57 a.m. Reveals sinus tachycardia 106 Intervals: Normal throughout [place]: Normal Overall assessment sinus tachycardia [address] abnormalities. No significant interval change when compared to an EKG dated 09/10/2017 by my interpretation. Imaging Results: Imaging Impressions Chest X-Ray 10/26/17 08:07 Impression: 1. Severe bullous emphysema. 2. Suspect acute pneumonia in the left lower lobe and right midlung field. Chest/Thorax CTA 10/26/17 08:19 Impression: 1. No evidence of pulmonary embolus using CT protocol. 2. Development of patchy consolidation/pneumonia inferior aspect of the right upper lobe posteriorly adjacent to moderate bleb formation. 3. Increase in dense consolidation left upper lobe near the apex with persistent thickening of the morin around blebs in the left upper lobe with mild decrease in consolidation and atelectasis in the adjacent left upper lobe. 4. Extensive interstitial lung disease once again noted as detailed above. Findings discussed with Tio Corbin M.D. at 9:19 hour, 10/26/2017. Single-view chest x-ray: Cavitations the left upper lobe, infiltrates versus atelectasis right midlung field and left base by my interpretation similar findings on prior chest x-ray dated September 2017. I spoke with Dr. Morteza Thompson regarding CT angio chest. He notes a right upper lobe infiltrate as well as left lung apex infiltrate. No pulmonary embolism. He also notes severe bullous emphysema and interstitial lung disease bilaterally. Imaging: Discussed imaging studies w/ call center support representative Radiologist (CT angio chest), I viewed and interpreted images myself ED Course/Re-evaluation: Non-rebreather O2 with O2 sat increased to the 90s. Solu-Medrol IV, DuoNeb Portable chest x-rays performed Patient's initial 2 were dyspnea resolved to full sentences and he looks more comfortable after respiratory treatment. The patient refuses aspirin for pain explaining bothers his stomach. He declines any analgesics for his current 3/10 discomfort. The patient refuses blood cultures, IV antibiotics or admission until I speak with his traffic assistant. I spoke with Dr. Mariee his traffic assistant at 10 after 9:00 a.m. Who concurs with my plan of IV antibiotics, fluids and admission. Patient then accepts treatment plan of ceftriaxone, Zithromax, IV fluids and admission to [facility]. Studies: CBC with white count or 15,000 with a left shift. Basic metabolic panel is normal. POC troponin is 0, D-dimer is elevated at 2.0, venous lactate is normal at 1.7 After L saline bolus, the patient's tachycardia resolved. I spoke with Norma, mid-level practitioner who accepts the patient to the step -down unit for Dr. Lara At 0950, the patient's tachycardia has resolved. His tachypnea has diminished. He is resting comfortably with IV antibiotics and p. O. Zithromax "on board." I spoke in some detail with the patient's regarding his pneumonia and other diagnostic findings and answered all their questions prior to transfer. Total bedside critical care time: 20 min Discussion: Patient presents with community-acquired pneumonia and sepsis with respiratory distress the setting of severe underlying I LD and emphysema warranting admission to the step-down unit for further treatment. Patient understands the treatment plan and agrees with plan for admission. We ruled out pulmonary embolism with CT. No pneumothorax or other complicating factors. - Data Points Laboratory Results: Laboratory Results 10/26/17 08:02 0610/26/17 10/26/17 08:07 08:05 08:02 WBC RBC Hgb Hct MCV MCH MCHC RDW Plt Count MPV Neut % (Auto) Lymph % (Auto) [place] % (Auto) Eos % (Auto) Baso % (Auto) Nucleat RBC Rel Count Absolute Neuts (auto) Absolute Lymphs (auto) Absolute Monos (auto) Absolute Eos (auto) Absolute Basos (auto) Absolute Nucleated RBC Immature Gran % Seg Neutrophils % Band Neutrophils % Lymphocytes % Monocytes % Eosinophils % Basophils % Metamyelocytes % Myelocytes % Promyelocytes % Blast Cells % Immature Gran # Absolute Seg Neuts Absolute Band Neuts Absolute Lymphocytes Absolute Monocytes Absolute Eosinophils Absolute Basophils Absolute Metamyelocyte Absolute Myelocytes Absolute Promyelocytes Absolute Plasma Cells RBC/WBC/PLT Morphology Absolute Blast Cells Plasma Cells % Platelet Estimate D-Dimer 2.03 ug/mLFEU H ug/mLFEU (0.00-0.50) POC Sodium 139 mEq/L mEq/L (135-145) POC Potassium 3.6 mEq/L mEq/L (3.3-5.0) POC Chloride 101.0 mEq/L mEq/L (97-110) POC Total CO2 25 mEq/L mEq/L (22-31) POC BUN 18 mg/dL mg/dL (7-23) POC Creatinine 0.8 mg/dL mg/dL (0.7-1.3) POC Glucose 158 mg/dL H mg/dL (70-100) POC Calcium 9.4 mg/dL mg/dL (8.5-10.4) POC Troponin I 0.00 ng/mL ng/mL (0.00-0.08) 10/26/17 08:02 WBC 15.73 10^3/uL H 10^3/uL (3.80-9.50) RBC 4.29 10^6/uL L 10^6/uL (4.40-6.38) Hgb 12.6 g/dL L g/dL (13.7-17.5) Hct 39.2 % L % (40.0-51.0) MCV 91.4 fL fL (81.5-99.8) MCH 29.4 pg pg (27.9-34.1) MCHC 32.1 g/dL L g/dL (32.4-36.7) RDW 16.7 % H % (11.5-15.2) Plt Count 319 10^3/uL 10^3/uL (150-400) MPV 9.7 fL fL (8.7-11.7) Neut % (Auto) Not Reported Lymph % (Auto) Not Reported [place] % (Auto) Not Reported Eos % (Auto) Not Reported Baso % (Auto) Not Reported Nucleat RBC Rel Count Not Reported Absolute Neuts (auto) Not Reported Absolute Lymphs (auto) Not Reported Absolute Monos (auto) Not Reported Absolute Eos (auto) Not Reported Absolute Basos (auto) Not Reported Absolute Nucleated RBC Not Reported Immature Gran % Not Reported Seg Neutrophils % 81.0 % % Band Neutrophils % 7.0 % % Lymphocytes % 1.0 % % Monocytes % 9.0 % % Eosinophils % 1.0 % % Basophils % 0 % % Metamyelocytes % 0 % % Myelocytes % 1.0 % % Promyelocytes % 0 % % Blast Cells % 0 % % Immature Gran # 10^3/uL 10^3/uL (0.00-0.10) Absolute Seg Neuts 12.74 10^/uL H 10^/uL (1.70-6.50) Absolute Band Neuts 1.10 10^3/uL H 10^3/uL (0.00-0.70) Absolute Lymphocytes 0.16 10^3/uL L 10^3/uL (1.00-3.00) Absolute Monocytes 1.42 10^3/uL H 10^3/uL (0.30-0.80) Absolute Eosinophils 0.16 10^3/uL 10^3/uL (0.03-0.40) Absolute Basophils 0.00 10^3/uL L 10^3/uL (0.02-0.10) Absolute Metamyelocyte 0.00 10^3/mL 10^3/mL (0.00-0.00) Absolute Myelocytes 0.16 10^3/mL H 10^3/mL (0.00-0.00) Absolute Promyelocytes 0.00 10^3/uL 10^3/uL (0.00-0.00) Absolute Plasma Cells 0.00 10^3/uL 10^3/uL (0.00-0.00) RBC/WBC/PLT Morphology NORMAL (NORMAL) Absolute Blast Cells 0.00 10^3/uL 10^3/uL (0.00-0.00) Plasma Cells % 0 % % Platelet Estimate ADEQUATE (ADEQ) D-Dimer POC Sodium POC Potassium POC Chloride POC Total CO2 POC BUN POC Creatinine POC Glucose POC Calcium POC Troponin I Medications Given: Discontinued Medications Albuterol/Ipratropium (Duoneb) 3 ml IH EDNOW ONE Stop: 10/26/17 08:10 Last Admin: 10/26/17 08:13 Dose: 3 ml Azithromycin (Zithromax) 500 mg PO EDNOW ONE PRN Reason: Protocol Stop: 10/26/17 09:11 Last Admin: 10/26/17 09:17 Dose: 500 mg Clopidogrel Bisulfate (Plavix) 75 mg PO EDNOW ONE Stop: 10/26/17 08:09 Last Admin: 10/26/17 09:18 Dose: Not Given Ceftriaxone Sodium/Dextrose (Rocephin 1 Gm (Premix)) 50 mls @ 100 mls/hr IV EDNOW ONE PRN Reason: Protocol Stop: 10/26/17 08:43 Last Admin: 10/26/17 09:21 Dose: 50 mls Sodium Chloride (Ns) 500 mls @ 0 mls/hr IV ONCE ONE; Wide Open PRN Reason: Protocol Stop: 10/26/17 09:06 Last Admin: 10/26/17 09:17 Dose: 500 mls Methylprednisolone Sodium Succinate (Solu-Medrol) 125 mg IVP EDNOW ONE Stop: 10/26/17 08:10 Last Admin: 10/26/17 08:18 Dose: 125 mg Point of Care Test Results: Chemistry 10/26/17 10/26/17 08:07 08:05 POC Sodium 139 mEq/L mEq/L (135-145) POC Potassium 3.6 mEq/L mEq/L (3.3-5.0) POC Chloride 101.0 mEq/L mEq/L (97-110) POC Total CO2 25 mEq/L mEq/L (22-31) POC BUN 18 mg/dL mg/dL (7-23) POC Creatinine 0.8 mg/dL mg/dL (0.7-1.3) POC Glucose 158 mg/dL H mg/dL (70-100) POC Calcium 9.4 mg/dL mg/dL (8.5-10.4) POC Troponin I 0.00 ng/mL ng/mL (0.00-0.08) Departure - Departure Disposition: [facility]patient Acute Clinical Impression: Respiratory distress Community acquired pneumonia Qualifiers: Laterality: unspecified laterality Qualified Code(s): J18.9 - Pneumonia, unspecified organism Sepsis Qualifiers: Sepsis type: sepsis due to unspecified organism Qualified Code(s): A41.9 - Sepsis, unspecified organism Condition: Serious
[2017-10-26 09:01] LABS: PLATELET COUNT 319 10^3/uL (150-400)
[2017-10-26] MEDS ORDERED: NS 500 ML IV ONE ×2 (09:05→09:40)
[2017-10-26] MEDS ORDERED: AZITHROMYCIN 250 MG TAB PO ONE (09:10)
[2017-10-26] MEDS ORDERED: HYDROCODONE/APAP 5/325 TAB PO ONE (10:47)
[2017-10-26 12:59] VITALS: BP 138/72
[2017-10-26] MEDS ORDERED: HYDROmorphONE/DILAUDID 2 MG TAB PO PRN (13:46)
--- NOTE | 2017-10-26 13:47 | PDGENHP ---
History and Physical - History of Present Illness History Information - Allergies/Home Medication List Allergies/Adverse Reactions: No Known Allergies Allergy (Verified 10/26/17 08:00) Home Medications: Atorvastatin Calcium [Lipitor 20 mg (*)] 20 mg PO HS 03/21/13 [Last Taken ] Calcium Carbonate/Vitamin D3 [Calcium 500-Vit D3 400 Tablet] 1 tab PO BID [Last Taken 08/12/17] Multivitamins [Multivitamin (*)] 1 each PO DAILY 03/21/13 [Last Taken 09/10/17] amLODIPine BESYLATE [Norvasc 10 mg (*)] 10 mg PO HS 03/21/13 [Last Taken ] Gabapentin [Neurontin 300 MG (*)] 300 mg PO Q6HRS 08/12/17 [Last Taken 09/10/17 10:00] Hydrocodone/Acetaminophen [[place] 5/325 (*)] 1 tab PO Q6HRS PRN 08/12/17 [Last Taken 09/10/17 10:00] Acetaminophen [Tylenol ES 500 mg (*)] 500 mg PO Q4 PRN 09/10/17 [Last Taken 09/23 12:00] Albuterol [Proventil Inhaler HFA (*)] 2 puffs IH Q4HRS PRN 09/10/17 [Last Taken Unknown] Chlorpheniramine/Dextromethorp [ROBITUSSIN LONG-ACTING LIQ] 10 ml PO BID [Last Taken 09/10/17 10:00] Fluticasone/Umeclidin/Vilanter [Trelegy Ellipta 100-62.5-25] 1 each IH DAILY 09/23 [Last Taken 09/10/17] Herbals/Supplements -Info Only 1 ea PO DAILY 09/10/17 [Last Taken Unknown] Melatonin [Melatonin 5 mg] 5 mg PO HS 09/10/17 [Last Taken 09/09/17] Vit C/Dl-E AC/Lut/Copper/Znox [Preservision Softgel] 1 each PO BID 09/10/17 [ Last Taken 09/10/17] - Social History Smoking Status: Former smoker Alcohol Use: None Drug Use: None Review of Systems Review of Systems: Physical Exam Physical Exam: Temp Pulse Resp BP Pulse Ox 36.7 C 94 20 138/72 H 92 10/26/17 12:56 10/26/17 12:56 10/26/17 12:56 10/26/17 12:56 10/26/17 12:56 O2 (L/minute) 10 Lab Data & Imaging Review 10/26/17 08:02 WBC 15.73 10^3/uL (3.80-9.50) H 10/26/17 08:02 RBC 4.29 10^6/uL (4.40-6.38) L 10/26/17 08:02 Hgb 12.6 g/dL (13.7-17.5) L 10/26/17 08:02 Hct 39.2 % (40.0-51.0) L 10/26/17 08:02 MCV 91.4 fL (81.5-99.8) 10/26/17 08:02 MCH 29.4 pg (27.9-34.1) 10/26/17 08:02 MCHC 32.1 g/dL (32.4-36.7) L 10/26/17 08:02 RDW 16.7 % (11.5-15.2) H 10/26/17 08:02 Plt Count 319 10^3/uL (150-400) 10/26/17 08:02 MPV 9.7 fL (8.7-11.7) 10/26/17 08:02 Neut % (Auto) Not Reported 10/26/17 08:02 Lymph % (Auto) Not Reported 10/26/17 08:02 [place] % (Auto) Not Reported 10/26/17 08:02 Eos % (Auto) Not Reported 10/26/17 08:02 Baso % (Auto) Not Reported 10/26/17 08:02 Nucleat RBC Rel Count Not Reported 10/26/17 08:02 Absolute Neuts (auto) Not Reported 10/26/17 08:02 Absolute Lymphs (auto) Not Reported 10/26/17 08:02 Absolute Monos (auto) Not Reported 10/26/17 08:02 Absolute Eos (auto) Not Reported 10/26/17 08:02 Absolute Basos (auto) Not Reported 10/26/17 08:02 Absolute Nucleated RBC Not Reported 10/26/17 08:02 Immature Gran % Not Reported 10/26/17 08:02 Seg Neutrophils % 81.0 % 10/26/17 08:02 Band Neutrophils % 7.0 % 10/26/17 08:02 Lymphocytes % 1.0 % 10/26/17 08:02 Monocytes % 9.0 % 10/26/17 08:02 Eosinophils % 1.0 % 10/26/17 08:02 Basophils % 0 % 10/26/17 08:02 Metamyelocytes % 0 % 10/26/17 08:02 Myelocytes % 1.0 % 10/26/17 08:02 Promyelocytes % 0 % 10/26/17 08:02 Blast Cells % 0 % 10/26/17 08:02 Immature Gran # 10^3/uL (0.00-0.10) 10/26/17 08:02 Absolute Seg Neuts 12.74 10^/uL (1.70-6.50) H 10/26/17 08:02 Absolute Band Neuts 1.10 10^3/uL (0.00-0.70) H 10/26/17 08:02 Absolute Lymphocytes 0.16 10^3/uL (1.00-3.00) L 10/26/17 08:02 Absolute Monocytes 1.42 10^3/uL (0.30-0.80) H 10/26/17 08:02 Absolute Eosinophils 0.16 10^3/uL (0.03-0.40) 10/26/17 08:02 Absolute Basophils 0.00 10^3/uL (0.02-0.10) L 10/26/17 08:02 Absolute Metamyelocyte 0.00 10^3/mL (0.00-0.00) 10/26/17 08:02 Absolute Myelocytes 0.16 10^3/mL (0.00-0.00) H 10/26/17 08:02 Absolute Promyelocytes 0.00 10^3/uL (0.00-0.00) 10/26/17 08:02 Absolute Plasma Cells 0.00 10^3/uL (0.00-0.00) 10/26/17 08:02 RBC/WBC/PLT Morphology NORMAL (NORMAL) 10/26/17 08:02 Absolute Blast Cells 0.00 10^3/uL (0.00-0.00) 10/26/17 08:02 Plasma Cells % 0 % 10/26/17 08:02 Platelet Estimate ADEQUATE (ADEQ) 10/26/17 08:02 D-Dimer 2.03 ug/mLFEU (0.00-0.50) H 10/26/17 08:02 POC Sodium 139 mEq/L (135-145) 10/26/17 08:07 POC Potassium 3.6 mEq/L (3.3-5.0) 10/26/17 08:07 POC Chloride 101.0 mEq/L (97-110) 10/26/17 08:07 POC Total CO2 25 mEq/L (22-31) 10/26/17 08:07 POC BUN 18 mg/dL (7-23) 10/26/17 08:07 POC Creatinine 0.8 mg/dL (0.7-1.3) 10/26/17 08:07 POC Glucose 158 mg/dL (70-100) H 10/26/17 08:07 POC Lactic Acid [place] 1.7 mmol/L (0.7-2.1) 10/26/17 09:21 POC Calcium 9.4 mg/dL (8.5-10.4) 10/26/17 08:07 POC Troponin I 0.00 ng/mL (0.00-0.08) 10/26/17 08:05 Assessment & Plan Assessment: Sepsis (Acute) Community acquired pneumonia (Acute) Respiratory distress (Acute)
--- NOTE | 2017-10-26 14:50 | ASMTCASEMG ---
Living Arrangements What is your living Answers: With Spouse arrangement? Who do you live with? Type Of Residence What kind of residence do Answers: House you live in? Discharge Plan Comments Coordination Status Comments Notes: Patient is a 72yo male who presents with community acquired pneumonia and sepsis with respiratory distress. Patient is a [facility] patient but the family did not contact them. Instead he was taken to an emergency care clinic who sent him to [facility] ED. Dr. Lara consulted with Dr. Mariee who is patient's medical center representative and a medical plan was put in place for palliative to assist with. Spoke with [facility] about the family's lack of education/understanding regarding how to use their services. [facility] agreed to educate the family and follow up today. Patient will be d/c'ed home with new medications including an increase in his prednisone as well as Levoquin and Augmentin. Spoke with the patient, his , Alda and his sister, Shawnee to let them know [facility] will be meeting with them today. The family has chosen to picking supervisor the medications at their [facility] vs. waiting on the medicines here. No further D/C needs. Date Signed: 10/26/2017 02:50 PM Electronically Signed By:Florence Hollis LCSW
--- NOTE | 2017-10-26 14:54 | ASMTDCNOTE ---
Case Management Discharge Discharge Order Complete? Answers: Yes Patient to Obtain Answers: Independently Medications Transportation Arranged Answers: Family/Friends Faxed Final Orders Answers: Yes Notes: [facility] Transfer Answers: Yes Notes: [facility] Report Printed & Faxed to Receiving Agency Family Notified Answers: Yes Notes: , Alda Discharge Comments Notes: Patient d/c'ing home with [facility] following. [facility] will see patient schedules an appointment with Dr. Mariee before next Tuesday for follow up. They will also educate the family on how to use palliative care services and go over his medications with him when he returns home today. No further d/c needs. Date Signed: 10/26/2017 02:54 PM Electronically Signed By:Florence Hollis LCSW
--- NOTE | 2017-10-26 14:57 | ASMTLACE ---
LACE Length of stay for Answers: Less than 1 day current admission Acuity / Level of Answers: Yes Care: Did the patient have an inpatient admission? Comorbidities - select Answers: Other Notes: COPD, community acquire d all that apply Pneumonia # of Emergency department Answers: 3-4 visits in the last 6 months Score: 7 Date Signed: 10/26/2017 02:56 PM Electronically Signed By:Florence Hollis LCSW
--- NOTE | 2017-10-26 14:58 | PDIAF ---
- Medication Management Discharge Medications: Medications to Continue on Transfer Atorvastatin Calcium [Lipitor 20 mg (*)] 20 mg PO HS 03/21/13 [Last Taken ] Calcium Carbonate/Vitamin D3 [Calcium 500-Vit D3 400 Tablet] 1 tab PO BID [Last Taken 08/12/17] Multivitamins [Multivitamin (*)] 1 each PO DAILY 03/21/13 [Last Taken 09/10/17] amLODIPine BESYLATE [Norvasc 10 mg (*)] 10 mg PO HS 03/21/13 [Last Taken ] Gabapentin [Neurontin 300 MG (*)] 300 mg PO Q6HRS 08/12/17 [Last Taken 09/10/17 10:00] Hydrocodone/Acetaminophen [[place] 5/325 (*)] 1 tab PO Q6HRS PRN 08/12/17 [Last Taken 09/10/17 10:00] Acetaminophen [Tylenol ES 500 mg (*)] 500 mg PO Q4 PRN 09/10/17 [Last Taken 09/23 12:00] Albuterol [Proventil Inhaler HFA (*)] 2 puffs IH Q4HRS PRN 09/10/17 [Last Taken Unknown] Chlorpheniramine/Dextromethorp [ROBITUSSIN LONG-ACTING LIQ] 10 ml PO BID [Last Taken 09/10/17 10:00] Fluticasone/Umeclidin/Vilanter [Trelegy Ellipta 100-62.5-25] 1 each IH DAILY 09/23 [Last Taken 09/10/17] Herbals/Supplements -Info Only 1 ea PO DAILY 09/10/17 [Last Taken Unknown] Melatonin [Melatonin 5 mg] 5 mg PO HS 09/10/17 [Last Taken 09/09/17] Vit C/Dl-E AC/Lut/Copper/Znox [Preservision Softgel] 1 each PO BID 09/10/17 [ Last Taken 09/10/17] Albuterol Sulfate [ALBUTEROL SULFATE 1.25 MG/3 ML] 1.25 mg IH Q4 PRN #40 [Last Taken Unknown] Benzonatate [Tessalon Pearles] 200 mg PO TID PRN #40 cap 09/13/17 [Last Taken Unknown] Cefpodoxime Proxetil [Vantin] 200 mg PO BID #11 tab 09/13/17 [Last Taken Unknown ] Sodium Cl Nasal [[place] (*)] 1 spray EACHNARE PRN PRN btl 09/13/17 [Last Taken Unknown] predniSONE 60 mg PO DAILY #18 tablet 09/13/17 [Last Taken Unknown] Amoxicillin/Clavulanate Pot [Augmentin 875 MG TAB (*)] 875 mg PO BID #20 tab [Last Taken Unknown] HYDROmorphone HCL [Dilaudid 2 mg (*)] 2 mg PO Q6H PRN #30 tab 10/26/17 [Last Taken Unknown] levOFLOXACIN [levAQUIN (*)] 750 mg PO DAILY #10 tab 10/26/17 [Last Taken Unknown ] Discharge Medications: Refer to the Discharge Home Medication list for PRN reason. - Orders Services needed: Registered Nurse, Certified Pipeline Integrity Engineer Isolation Type: None Diet Recommendation: no restrictions on diet - Follow Up Care Current Providers and Referrals: Frantz Ayala DO [Primary Care Provider] - As per Instructions Joel Mariee MD [Medical Doctor] - follow up in 1 week
== END 2017-10-26 14:57 | disposition home or self-care (01) ==
LOC: CED 07:52 → INTOOBSV 09:16 → CEDHOLD 09:16 → F2N 13:57
PROVIDERS: ADMIT Internal Medicine; ATTEND Internal Medicine
DX: J18.9 Pneumonia, unspecified organism (principal); R06.03 Acute respiratory distress; E86.9 Volume depletion, unspecified
CPT/HCPCS: 71045; 71275; 93005; 96361; 96365; 96375; 99285; G0378; J0696; J2930; Q9967; 80048-PO; 83605-PO; 84484-PO